=== PATIENT | female | born 1965 | race Caucasian/White ===

== ENCOUNTER 2016-09-11 19:17 | Emergency (ER) | payer OTHER ==
[2016-09-11] MEDS ORDERED: DEXAMETHASONE 10 MG/ML VIAL IM STA (20:13)
[2016-09-11] MEDS ORDERED: AMOX/CLAV 875 MG/125 MG TABLET PO STA (20:13)
--- NOTE | 2016-09-11 20:16 | ED Physician Documentation ---
PD HPI HEENT - Stated complaint Stated Complaint: SINUS INF - Chief complaint Chief Complaint: General - History obtained from History obtained from: Patient - History of Present Illness Timing - onset: How many days ago (4) Timing - duration: Days (4) Timing - details: Gradual onset, Still present Location: Left ear, Sinuses Improves: Medication Associated symptoms: Congestion, Rhinorrhea, Facial swelling, Headache Similar symptoms before: Diagnosis (sinusitis) Recently seen: Not recently seen - Additional information Additional information: 51-year-old female with history of gastric bypass has developed typical sinus infection symptoms. She has had sinus infection a number of times previously. She started this course with a headache on the left side and progression to sinus congestion and facial swelling pain in the left ear. Review of Systems Constitutional: reports: Fatigue. denies: Fever Eyes: denies: Decreased vision Ears: reports: Ear pain Nose: reports: Rhinorrhea / runny nose, Congestion, Sinus pressure / pain Throat: denies: Dental pain / toothache, Sore throat Cardiac: denies: Chest pain / pressure Respiratory: reports: Cough (Typical smoker's cough). denies: Dyspnea GI: denies: Abdominal Pain, Nausea, Vomiting : denies: Dysuria Skin: denies: Rash Musculoskeletal: denies: Neck pain Neurologic: reports: Headache. 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 : None HEENT: Chronic sinusitis Psych: None Musculoskeletal: Osteoarthritis Derm: None - Past Surgical History Past Surgical History: Yes General: Cholecystectomy, Bowel surgery, Gastric surgery, Colonoscopy /BUILDING CONSTRUCTION SUPERINTENDENT: Endometrial ablation, Dilation and currettage, Hysterectomy, Oophrectomy , LEEP (Cervical surgery) HEENT: Tonsil/Adenoidectomy - Present Medications Home Medications: Ambulatory Orders Medication Instructions Recorded Confirmed Amox/Clav 875/125 [Augmentin] 1 each PO Q12H #20 tablet 09/11/16 - Allergies Allergies/Adverse Reactions: Allergies Allergy/AdvReac Type Severity Reaction Status Date / Time No Known Drug Allergies Allergy Verified 09/11/16 19:46 - Social History Does the pt smoke?: Yes Smoking Status: Current every day smoker Does the pt drink ETOH?: Yes ETOH Use: Beer Does the pt have substance abuse?: No Substance Use and Type: Marijuana - Immunizations Immunizations are current?: Yes - POLST Patient has POLST: No PD ED PE NORMAL - Vitals Vital signs reviewed: Yes (Normal) - General General: No acute distress, Well developed/nourished, Other (Obvious nasal quality to the voice.) - HEENT HEENT: Atraumatic, PERRL, EOMI, Moist mucous membranes, Pharynx benign, Dentition benign, Other (The left TM is inflamed in the addict the right TM is also inflamed. There is sinus point tenderness to the left maxillary sinus and not to the right similar to the left frontal sinus and not to the right. ) - Neck Neck: Supple, no meningeal sign, No bony TTP - Cardiac Cardiac: RRR, No murmur - Respiratory Respiratory: No respiratory distress, Clear bilaterally - Derm Derm: Normal color, Warm and dry, No rash - Extremities Extremities: Normal ROM s pain, No edema - Neuro Neuro: No motor deficit, No sensory deficit - Psych Psych: Normal mood, Normal affect Results - Vitals Vitals: Vital Signs - 24 hr 09/11/16 09/11/16 09/11/16 19:29 19:43 19:47 Temperature 36.5 C 36.0 C L 36.3 C L Heart Rate 84 76 77 Respiratory 18 17 16 Rate Blood Pressure 126/72 103/71 114/83 H O2 Saturation 100 100 100 Oxygen O2 Source Room air PD MEDICAL DECISION MAKING - ED course Complexity details: considered differential, d/w patient ED course: 51-year-old female with history of gastric bypass with acute maxillary sinusitis and otitis is given a dose of dexamethasone IM because she has had issue with her esophagus previously. She is also given a dose of Augmentin here in the emergency department as the pharmacies are about to close. Departure - Departure Disposition: 01 Home, Self Care Clinical Impression: Acute maxillary sinusitis Qualifiers: Recurrence: not specified as recurrent Qualified Code(s): J01.00 - Acute maxillary sinusitis, unspecified Otitis media Qualifiers: Otitis media type: suppurative Laterality: bilateral Chronicity: acute Recurrence: not specified as recurrent Spontaneous tympanic membrane rupture: without spontaneous rupture Qualified Code(s): H66.003 - Acute suppurative otitis media without spontaneous rupture of ear drum, bilateral Condition: Stable Instructions: ED Otitis Media Acute Adult, ED Sinusitis Abx Tx Follow-Up: Jimenez Mendiola MD [Primary Care Provider] - Prescriptions: Amox/Clav 875/125 [Augmentin] 1 each PO Q12H #20 tablet
[2016-09-11] MEDS ORDERED: AMOX/CLAV 875 MG/125 MG TABLET PO ONE (20:17)
[2016-09-11] MEDS ORDERED: DEXAMETHASONE 10 MG/ML VIAL ONE (20:18)
[2016-09-11 20:48] VITALS: BP 109/78
== END 2016-09-11 20:49 | disposition home or self-care (01) ==
LOC: ED 19:17
DX: J01.00 Acute maxillary sinusitis, unspecified (principal); H66.003 Acute suppurative otitis media without spontaneous rupture of ear drum, bilateral; I10 Essential (primary) hypertension; E11.9 Type 2 diabetes mellitus without complications; F17.200 Nicotine dependence, unspecified, uncomplicated; Z98.84 Bariatric surgery status
CPT/HCPCS: 96372; 99283; A9270

== ENCOUNTER 2016-09-25 11:57 | Emergency (ER) | payer OTHER ==
[2016-09-25] MEDS ORDERED: PROPARACAINE 0.5% OPHTH DROPS 15 ML ONE (12:36)
--- NOTE | 2016-09-25 12:47 | ED Physician Documentation ---
PD HPI URI - Stated complaint Stated Complaint: VISION IMPAIRED - Chief complaint Chief Complaint: Heent - History obtained from History obtained from: Patient - History of Present Illness Timing - onset: Other (51-year-old woman with recurrent sinusitis, recently treated for same but stopped the antibiotic, Augmentin because of diarrhea. Today she coughed quite hard and had flashes and floaters in both eyes for 30 seconds which rapidly went away but then developed a very mild left retro- orbital headache of gradual onset there is no recurrent visual deficit. She is specifically worried about retinal detachment, I assured her that this was inconsistent with the history provided. She still has sinus symptoms. 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 : None HEENT: Chronic sinusitis Psych: None Musculoskeletal: Osteoarthritis Derm: None - Past Surgical History Past Surgical History: Yes General: Cholecystectomy, Bowel surgery, Gastric surgery, Colonoscopy /SPOOL SALVAGER: Endometrial ablation, Dilation and currettage, Hysterectomy, Oophrectomy , LEEP (Cervical surgery) HEENT: Tonsil/Adenoidectomy - Present Medications Home Medications: Ambulatory Orders Medication Instructions Recorded Confirmed Cefdinir 300 mg PO BID #28 capsule 09/25/16 Sitagliptin Phos/Metformin HCl 1 tab PO DAILY 09/25/16 09/25/16 [Janumet 50-1,000 mg Tablet] - Allergies Allergies/Adverse Reactions: Allergies Allergy/AdvReac Type Severity Reaction Status Date / Time No Known Drug Allergies Allergy Verified 09/11/16 19:46 - Social History Does the pt smoke?: Yes Smoking Status: Current every day smoker Does the pt drink ETOH?: Yes Does the pt have substance abuse?: No - Immunizations Immunizations are current?: Yes - POLST Patient has POLST: No PD ED PE NORMAL - Vitals Vital signs reviewed: Yes - General General: Alert and oriented X 3, No acute distress - HEENT HEENT: PERRL, EOMI, Other (Nondilated funduscopic exam is normal, Kota-Pen is 15 on the right, 16 on the left, there is mild left maxillary sinus tenderness.) - Neck Neck: Supple, no meningeal sign, No bony TTP - Neuro Neuro: Alert and oriented X 3, melter supervisor oxygen furnace 2-12 intact, No motor deficit, No sensory deficit, Normal speech - Psych Psych: Normal mood, Normal affect Results - Vitals Vitals: Vital Signs - 24 hr 09/25/16 12:02 Temperature 36.5 C Heart Rate 82 Respiratory 18 Rate Blood Pressure 106/72 O2 Saturation 100 Oxygen O2 Source Room air Departure - Departure Disposition: 01 Home, Self Care Clinical Impression: Acute maxillary sinusitis Qualifiers: Recurrence: recurrent Qualified Code(s): J01.01 - Acute recurrent maxillary sinusitis Condition: Good Record reviewed to determine appropriate education?: Yes Instructions: ED Sinusitis No Abx Prescriptions: Cefdinir 300 mg PO BID #28 capsule Comments: fOLLOWUP WITH YOUR EYE DOCTOR VAZQUEZ IF SYMPTOMS DO NOT QUICKLY RESOLVE.
[2016-09-25 12:52] VITALS: BP 106/76
== END 2016-09-25 12:54 | disposition home or self-care (01) ==
LOC: ED 11:57
DX: J01.00 Acute maxillary sinusitis, unspecified (principal); I10 Essential (primary) hypertension; E11.9 Type 2 diabetes mellitus without complications; Z79.84 Long term (current) use of oral hypoglycemic drugs; F17.200 Nicotine dependence, unspecified, uncomplicated
CPT/HCPCS: 99283; J3490

== ENCOUNTER 2017-05-10 13:04 | Outpatient (CLI) | payer OTHER | END 2017-05-10 13:05 | disposition critical access hospital (66) | LOC: EMS 13:04 | PROVIDERS: ATTEND Surgery | DX: M54.5 Low back pain (principal) | CPT/HCPCS: A0425; A0429 ==

== ENCOUNTER 2017-05-10 13:22 | Emergency (ER) | payer OTHER ==
[2017-05-10] MEDS ORDERED: diazePAM INJ 5 MG/ML SYRINGE IVP STA (13:28)
[2017-05-10] MEDS ORDERED: HYDROmorphone 1 MG/ML SYRINGE IVP STA ×3 (13:28→15:16)
[2017-05-10] MEDS ORDERED: KETOROLAC 60 MG/2 ML VIAL IVP STA (13:28)
--- NOTE | 2017-05-10 13:30 | ED Physician Documentation ---
PD HPI BACK PAIN - Stated complaint Stated Complaint: BACK PX - History obtained from History obtained from: Patient, EMS - History of Present Illness Timing - onset: Other (She has had on and off low back pain which is at times severe and she smokes marijuana for it. This is only on a very occasional basis. Over the last few days the pain has been much more severe and it doubled her over today. It is in the low back and radiates to both hips and around to the front on both sides with some mild numbness in the left leg. There is no incontinence or saddle anesthesia. 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 : None HEENT: Chronic sinusitis Psych: None Musculoskeletal: Osteoarthritis Derm: None - Past Surgical History Past Surgical History: Yes General: Cholecystectomy, Bowel surgery, Gastric surgery, Colonoscopy /MANAGER AVIATION: Endometrial ablation, Dilation and currettage, Hysterectomy, Oophrectomy , LEEP (Cervical surgery) HEENT: Tonsil/Adenoidectomy - Present Medications Home Medications: Ambulatory Orders Medication Instructions Recorded Confirmed Cefdinir 300 mg PO BID #28 capsule 09/25/16 Sitagliptin Phos/Metformin HCl 1 tab PO DAILY 09/25/16 09/25/16 [Janumet 50-1,000 mg Tablet] Cyclobenzaprine [Flexeril] 10 mg PO TID PRN #20 tablet 05/10/17 Ibuprofen [Motrin] 800 mg PO Q8H PRN #30 tablet 05/10/17 Oxycodone HCl/Acetaminophen 1 - 2 tab PO Q4H PRN #15 tablet 05/10/17 [Percocet 5-325 mg Tablet] - Allergies Allergies/Adverse Reactions: Allergies Allergy/AdvReac Type Severity Reaction Status Date / Time No Known Drug Allergies Allergy Verified 05/10/17 13:44 - Social History Does the pt smoke?: Yes Smoking Status: Current every day smoker Does the pt drink ETOH?: Yes Does the pt have substance abuse?: No - Immunizations Immunizations are current?: Yes - POLST Patient has POLST: No PD ED PE NORMAL - Vitals Vital signs reviewed: Yes - General General: Alert and oriented X 3, Other (She is in obvious pain and winces with motion.) - Cardiac Cardiac: RRR, No murmur - Respiratory Respiratory: No respiratory distress, Clear bilaterally - Abdomen Abdomen: Non tender - Back Back: Other (She is tender to the low paralumbar musculature bilaterally. She has mildly diminished sensation over the anterior left thigh, otherwise The patient has equal and normal Achilles and patellar reflexes bilaterally. Normal sensation in all areas of the legs. Patient denies saddle anesthesia. Normal strength in flexion-extension at the ankles, knees, and flexion of the hips.) - Neuro Neuro: Alert and oriented X 3, Normal speech - Psych Psych: Normal mood, Normal affect Results - Vitals Vitals: Vital Signs - 24 hr 05/10/17 05/10/17 05/10/17 13:27 14:43 16:18 Temperature 35.8 C L Heart Rate 77 92 93 Respiratory 32 H 18 18 Rate Blood Pressure 137/97 H 108/76 117/74 O2 Saturation 100 96 100 Oxygen O2 Source Room air - Labs Labs: Laboratory Tests 05/10/17 05/10/17 13:38 13:38 WBC 7.9 RBC 4.51 Hgb 13.1 Hct 38.1 MCV 84.5 MCH 28.9 MCHC 34.3 RDW 14.9 Plt Count 230 MPV 8.5 Neut # 4.3 Lymph # 2.5 [place] # 0.7 Eos # 0.2 Baso # 0.1 Absolute Nucleated RBC 0.00 Nucleated RBC % 0.0 Sodium 135 Potassium 3.8 Chloride 100 L Carbon Dioxide 23 Anion Gap 12.0 BUN 9 Creatinine 0.7 Estimated GFR (MDRD) 89 Glucose 142 H Calcium 8.7 - Rads (name of study) MRI Lspine Radiology: See rad report (Multilevel Neuroforaminal narrowing and minimal grade 1 anterolisthesis of L5 on S1.) PD MEDICAL DECISION MAKING - ED course ED course: 47-year-old woman presents with severe low back pain, it was basically intractable during the first hours of her stay here. Because of that an MRI was done, especially knowing that she has Underlying type 2 diabetes which of course is a major risk factor for spinal epidural abscess, MRI results as shown. Departure - Departure Disposition: 01 Home, Self Care Clinical Impression: Sciatica Qualifiers: Laterality: left Qualified Code(s): M54.32 - Sciatica, left side Back pain Qualifiers: Back pain location: low back pain Chronicity: acute Back pain laterality: bilateral Sciatica presence: with sciatica Sciatica laterality: sciatica of left side Qualified Code(s): M54.42 - Lumbago with sciatica, left side Diabetes Qualifiers: Diabetes mellitus type: type 2 Diabetes mellitus complication status: without complication Diabetes mellitus correction insulin use: without moth exterminator use Qualified Code(s): E11.9 - Type 2 diabetes mellitus without complications Condition: Good Record reviewed to determine appropriate education?: Yes Instructions: ED Sciatica Prescriptions: Cyclobenzaprine [Flexeril] 10 mg PO TID PRN #20 tablet PRN Reason: Pain Ibuprofen [Motrin] 800 mg PO Q8H PRN #30 tablet PRN Reason: PAIN &/OR FEVER Oxycodone HCl/Acetaminophen [Percocet 5-325 mg Tablet] 1 - 2 tab PO Q4H PRN #15 tablet PRN Reason: Pain Comments: Call your doctor to arrange a follow-up appointment, make the next available appointment. In the interim, return anytime if worse or if new symptoms develop. Do not drink or drive while taking narcotic pain medication. Note that many narcotic pain relievers also contain Tylenol/acetaminophen. Please ensure that your total dose of acetaminophen from all sources does not exceed 3 g (3000 mg) per day. You may get constipated while on this medication. Take a stool softener such as Colace twice a day while you are on it. Also add an [id number]-[id number] laxative such as senna or MiraLAX on any day that you do not have a bowel movement. If you received a narcotic pain medication or sedative while in the emergency department, do not drive for the next 24 hours.
[2017-05-10 13:43] LABS: BASOPHILS # (AUTO) 0.1 10^3/uL (0.0-0.1); BASOPHILS % (AUTO) 0.9 %; EOSINOPHILS # (AUTO) 0.2 10^3/uL (0.0-0.7); EOSINOPHILS % (AUTO) 2.9 %; HGB - HEMOGLOBIN 13.1 g/dL (12.0-16.0); LYMPHOCYTES # (AUTO) 2.5 10^3/uL (1.5-3.5); LYMPHOCYTES % (AUTO) 32.2 %; MEAN CORPUSCULAR HEMOGLOBIN 28.9 pg (27.0-31.0); MEAN CORPUSCULAR HGB CONC 34.3 g/dL (32.0-36.0); MEAN CORPUSCULAR VOLUME 84.5 fL (81.0-99.0); MEAN PLATELET VOLUME 8.5 fL (7.9-10.8); MONOCYTES # (AUTO) 0.7 10^3/uL (0.0-1.0); MONOCYTES % (AUTO) 8.9 %; NEUTROPHILS # (AUTO) 4.3 10^3/uL (1.5-6.6); NEUTROPHILS % (AUTO) 55.1 %; PLT - PLATELET COUNT 230 10^3/uL (130-450); RED BLOOD COUNT 4.51 10^6/uL (4.20-5.40); RED CELL DISTRIBUTION WIDTH 14.9 % (12.0-15.0); WHITE BLOOD COUNT 7.9 x10^3/uL (4.8-10.8)
[2017-05-10] MEDS ORDERED: LORazepam 2 MG/ML VIAL IVP STA (13:48)
[2017-05-10 13:51] LABS: CALCIUM 8.7 mg/dL (8.5-10.3); CREATININE 0.7 mg/dL (0.4-1.0)
[2017-05-10] MEDS ORDERED: DEXAMETHASONE 10 MG/ML VIAL IVP STA (14:14)
[2017-05-10] MEDS ORDERED: ONDANSETRON 4 MG/2 ML VIAL IVP STA (16:38)
--- NOTE | 2017-05-10 16:47 | MRI Report ---
EXAM: MRI LUMBAR SPINE WITHOUT CONTRAST EXAM DATE: 05/10/2017 04:05 PM. CLINICAL HISTORY: 51-year-old with intractable low back pain and pain radiating into the left lower e xtremity COMPARISON: None. TECHNIQUE: Multiplanar, multisequence T1-weighted and fluid-sensitive sequences of the lumbar spine f rom T12 to S1 without contrast. Other: None. FINDINGS: Spinal Cord: The conus terminates at L1-L2. The conus medullaris and cauda equina are unremarkable. Alignment: There is a 3 mm grade 1 anterolisthesis of L5 on S1. No definite scoliotic curvature. Bone Marrow: Five [id number] lumbar vertebral bodies are assumed. No gross fractures or bone les ions. No bone marrow edema. Disk Levels/Facets: Mild loss of disk height and disk desiccation seen from L3-L4 to L5-S1, greatest at L4-L5. T12-L1: Unremarkable. L1-L2: Unremarkable. L2-L3: Small posterior disk bulge, ligamentum flavum thickening, facet disease, and prominent dorsal epidural fat. Mild spinal canal stenosis. Minimal right neural foraminal narrowing. L3-L4: Small posterior disk bulge, ligamentum flavum thickening, facet disease, and prominent dorsal epidural fat. No definite spinal canal stenosis. Mild bilateral neural foraminal narrowing. L4-L5: Small posterior disk bulge, ligamentum flavum thickening, arthritic facet disease, and promine nt dorsal epidural fat. No spinal canal stenosis. Mild to moderate bilateral neural foraminal narrowi ng. L5-S1: Small central to right paracentral disk protrusion. Bilateral facet disease. Effacement of the right lateral recess with contact of the right S1 nerve root. Mild bilateral neural foraminal narrow ing. Musculature: Visualized paraspinal musculature appears normal. There is edema seen within the subcuta neous fat. Other: The partially visualized retroperitoneum is unremarkable. IMPRESSION: 1. There is minimal grade 1 anterolisthesis of L5 on S1. 2. There is mild multilevel degenerative changes. L2-L3: Mild spinal canal stenosis. Minimal right neural foraminal narrowing. L3-L4: No definite spinal canal stenosis. Mild bilateral neural foraminal narrowing. L4-L5: No spinal canal stenosis. Mild to moderate bilateral neural foraminal narrowing. L5-S1: Effacement of the right lateral recess with potential contact of the right S1 nerve root. Mild bilateral neural foraminal narrowing. Comment: The following findings are so common in adults without low back pain that while we report th eir presence, they must be interpreted with caution and in the context of the clinical situation. (Re aníbal Gutierrez et al, Spine 2001) Prevalence of findings in patients without low back pain: Disk degeneration (any evidence): 92% Disk desiccation/T2 signal loss: 83% Disk height loss: 56% Disk bulge: 64% Disk protrusion: 32% Annular tear/high intensity zone: 38% [facility] Referring Provider Line: [phone] SITE ID: [id number]
[2017-05-10 17:22] VITALS: BP 109/67
== END 2017-05-10 17:20 | disposition home or self-care (01) ==
LOC: EDUNIT# → ED 13:22
DX: M54.42 Lumbago with sciatica, left side (principal); I10 Essential (primary) hypertension; E11.9 Type 2 diabetes mellitus without complications; F17.200 Nicotine dependence, unspecified, uncomplicated
CPT/HCPCS: 36415; 72148; 80048; 85025; 96374; 96375; 96376; 99284; J1170; J2060

== ENCOUNTER 2017-05-14 11:13 | Emergency (ER) | payer OTHER ==
[2017-05-14] MEDS ORDERED: KETOROLAC 60 MG/2 ML VIAL IM STA (12:41)
[2017-05-14] MEDS ORDERED: HYDROmorphone 1 MG/ML CARPUJECT IM STA (12:41)
--- NOTE | 2017-05-14 12:43 | ED Physician Documentation ---
PD HPI BACK INJURY - Stated complaint Stated Complaint: BACK PX - History obtained from History obtained from: Patient - History of Present Illness Location: Other (She developed severe low back pain 5 days ago and was seen here 4 days ago when medicated. She did improve, she is out of the oxycodone. An MRI was done on that date showing multilevel disease. She had neural foraminal narrowing that was mild to moderate at multiple levels. Pain has settled into the left hip and she is numb over the lateral left hip, but not completely. There is no saddle anesthesia or fever.) Review of Systems Constitutional: denies: Fever, Chills GI: reports: Vomiting (from the pain). 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 : None HEENT: Chronic sinusitis Psych: None Musculoskeletal: Osteoarthritis Derm: None - Past Surgical History Past Surgical History: Yes General: Cholecystectomy, Bowel surgery, Gastric surgery, Colonoscopy /QUILLER MACHINE FIXER: Endometrial ablation, Dilation and currettage, Hysterectomy, Oophrectomy , LEEP (Cervical surgery) HEENT: Tonsil/Adenoidectomy - Present Medications Home Medications: Ambulatory Orders Medication Instructions Recorded Confirmed Cefdinir 300 mg PO BID #28 capsule 09/25/16 05/14/17 Sitagliptin Phos/Metformin HCl 1 tab PO DAILY 09/25/16 05/14/17 [Janumet 50-1,000 mg Tablet] Cyclobenzaprine [Flexeril] 10 mg PO TID PRN #20 tablet 05/10/17 05/14/17 Ibuprofen [Motrin] 800 mg PO Q8H PRN #30 tablet 05/10/17 05/14/17 Gabapentin 300 mg PO TID #90 capsule 05/14/17 Meloxicam [Mobic] 7.5 mg PO BIDWM PRN #15 tablet 05/14/17 Oxycodone HCl/Acetaminophen 1 - 2 tab PO Q4H PRN #15 tablet 05/14/17 [Percocet 5-325 mg Tablet] - Allergies Allergies/Adverse Reactions: Allergies Allergy/AdvReac Type Severity Reaction Status Date / Time No Known Drug Allergies Allergy Verified 05/14/17 11:49 - Social History Does the pt smoke?: Yes Smoking Status: Current every day smoker Does the pt drink ETOH?: Yes Does the pt have substance abuse?: No - Immunizations Immunizations are current?: Yes - POLST Patient has POLST: No PD ED PE NORMAL - Vitals Vital signs reviewed: Yes - General General: Alert and oriented X 3, Other (Comfortable at rest, winces with motion) - Abdomen Abdomen: Soft, Non tender - Back Back: No spinal TTP - Extremities Extremities: Other (She has diminished sensation especially in the left L4 distribution, she has mild pedal edema. I am unable to at least initially have her bend her legs to check patellar reflexes.) - Neuro Neuro: Alert and oriented X 3, Normal speech Results - Vitals Vitals: Vital Signs - 24 hr 05/14/17 05/14/17 11:16 13:18 Temperature 35.7 C L 36.1 C L Heart Rate 87 78 Respiratory 18 18 Rate Blood Pressure 128/80 129/85 H O2 Saturation 100 100 Oxygen O2 Source Room air PD MEDICAL DECISION MAKING - ED course ED course: She was administered IM Dilaudid and Toradol with modest relief, she requested discharge at that point without further medications here. Departure - Departure Disposition: Home, Self Care Clinical Impression: Sciatica Qualifiers: Laterality: left Qualified Code(s): M54.32 - Sciatica, left side Condition: Good Record reviewed to determine appropriate education?: Yes Instructions: ED Sciatica Prescriptions: Gabapentin 300 mg PO TID #90 capsule Meloxicam [Mobic] 7.5 mg PO BIDWM PRN #15 tablet PRN Reason: Pain Oxycodone HCl/Acetaminophen [Percocet 5-325 mg Tablet] 1 - 2 tab PO Q4H PRN #15 tablet PRN Reason: Pain Comments: Call your doctor to arrange a follow-up appointment, make the next available appointment. In the interim, return anytime if worse or if new symptoms develop. Do not drink or drive while taking narcotic pain medication. Note that many narcotic pain relievers also contain Tylenol/acetaminophen. Please ensure that your total dose of acetaminophen from all sources does not exceed 3 g (3000 mg) per day. You may get constipated while on this medication. Take a stool softener such as Colace twice a day while you are on it. Also add an ikpa-uak-zudukgx laxative such as senna or MiraLAX on any day that you do not have a bowel movement. If you received a narcotic pain medication or sedative while in the emergency department, do not drive for the next 24 hours. Your blood pressure was elevated today on check into the emergency department. This does not mean that you have hypertension, it is a common phenomenon to come to the emergency department and have elevated blood pressure. I recommend that you see your primary care physician within the week to have it rechecked when you are feeling better.
[2017-05-14 13:18] VITALS: BP 129/85
== END 2017-05-14 13:32 | disposition home or self-care (01) ==
LOC: ED 11:13
DX: M54.32 Sciatica, left side (principal); I10 Essential (primary) hypertension; E11.9 Type 2 diabetes mellitus without complications; Z79.84 Long term (current) use of oral hypoglycemic drugs; K21.9 Gastro-esophageal reflux disease without esophagitis; N80.9 Endometriosis, unspecified; M19.90 Unspecified osteoarthritis, unspecified site; Z98.84 Bariatric surgery status; F17.200 Nicotine dependence, unspecified, uncomplicated
CPT/HCPCS: 96372; 99283; J1170

== ENCOUNTER 2017-06-18 16:50 | Outpatient (CLI) | payer OTHER ==
--- NOTE | 2017-06-18 20:15 | Ultrasound Report ---
EXAM: BILATERAL LOWER EXTREMITY VENOUS ULTRASOUND EXAM DATE: 06/18/2017 05:16 PM. CLINICAL HISTORY: Bilateral ASYMPTOMATIC VARICOSE VEINS. COMPARISON: None. TECHNIQUE: Real-time sonographic vascular imaging was performed by the assistant sales manager through the lower extremities utilizing both color-flow and Doppler spectral analysis. Multiple automotive leasing sales representative static i mages were saved for review. FINDINGS: Right: Common Femoral Vein (CFV): Normal. CFV-GSV Junction: Normal. Profunda Femoral Vein (PFV): Normal. Femoral Vein (FV) Prox: Normal. Femoral Vein (FV) Mid: Normal. Femoral Vein (FV) Dist: Normal. Popliteal Vein: Normal. Posterior Tibial Veins: Normal. Peroneal Veins: Normal. Left: Common Femoral Vein (CFV): Normal. CFV-GSV Junction: Normal. Profunda Femoral Vein (PFV): Normal. Femoral Vein (FV) Prox: Normal. Femoral Vein (FV) Mid: Normal. Femoral Vein (FV) Dist: Normal. Popliteal Vein: Normal. Posterior Tibial Veins: Normal. Peroneal Veins: Normal. Other: None. IMPRESSION: No evidence for deep venous thrombosis bilaterally. [facility] Referring Provider Line: [phone] SITE ID: [id number]
== END 2017-06-18 16:51 | disposition home or self-care (01) ==
LOC: DI 16:50
PROVIDERS: ATTEND Family Medicine
DX: I83.90 Asymptomatic varicose veins of unspecified lower extremity (principal)
CPT/HCPCS: 93970

== ENCOUNTER 2017-09-01 19:47 | Emergency (ER) | payer OTHER ==
[2017-09-01 19:55] VITALS: BP 124/81
[2017-09-01] MEDS ORDERED: POLYMYXIN B/TRIMETH OPHTH DROPS EACHEYE STA (21:23)
--- NOTE | 2017-09-01 21:23 | ED Physician Documentation ---
PD HPI OPHTHO - Stated complaint Stated Complaint: RED EYES - Chief complaint Chief Complaint: Heent - History obtained from History obtained from: Patient - History of Present Illness Timing - onset: How many days ago (2) Timing - details: Gradual onset, Still present Location: Both Associated symptoms: Redness, Discharge Similar symptoms before: Treatment Recently seen: Not recently seen - Additional information Additional information: Patient is a 52 year old female with no significant past medical history who is presenting to the emergency department for bilateral eye pain. patient states that the redness has been going on for the last couple of days. Patient has been using drops but they a few years ago. When asked about possible things culprits patient states that her cat sleep on her head every day. 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: Endometriosis : None HEENT: Chronic sinusitis Psych: None Musculoskeletal: Osteoarthritis Derm: None - Past Surgical History Past Surgical History: Yes General: Cholecystectomy, Bowel surgery, Gastric surgery, Colonoscopy /CHRONIC MANAGER: Endometrial ablation, Dilation and currettage, Hysterectomy, Oophrectomy , LEEP (Cervical surgery) HEENT: Tonsil/Adenoidectomy - Present Medications Home Medications: Ambulatory Orders Medication Instructions Recorded Confirmed Cefdinir 300 mg PO BID #28 capsule 09/25/16 05/14/17 Sitagliptin Phos/Metformin HCl 1 tab PO DAILY 09/25/16 05/14/17 [Janumet 50-1,000 mg Tablet] Cyclobenzaprine [Flexeril] 10 mg PO TID PRN #20 tablet 05/10/17 05/14/17 Ibuprofen [Motrin] 800 mg PO Q8H PRN #30 tablet 05/10/17 05/14/17 Gabapentin 300 mg PO TID #90 capsule 05/14/17 Meloxicam [Mobic] 7.5 mg PO BIDWM PRN #15 tablet 05/14/17 Oxycodone HCl/Acetaminophen 1 - 2 tab PO Q4H PRN #15 tablet 05/14/17 [Percocet 5-325 mg Tablet] Polymyxin B Sulf/Trimethoprim 1 drop EACHEYE Q3H 7 Days drops 09/01/17 [Polytrim Eye Drops] - Allergies Allergies/Adverse Reactions: Allergies Allergy/AdvReac Type Severity Reaction Status Date / Time No Known Drug Allergies Allergy Verified 09/01/17 19:55 - Social History Does the pt smoke?: Yes Smoking Status: Current every day smoker Does the pt drink ETOH?: Yes Does the pt have substance abuse?: No - Immunizations Immunizations are current?: Yes - POLST Patient has POLST: No PD ED PE NORMAL - General General: Alert and oriented X 3, No acute distress - HEENT HEENT: Atraumatic - Neck Neck: Supple, no meningeal sign - Cardiac Cardiac: RRR - Respiratory Respiratory: No respiratory distress - Derm Derm: Normal color, No rash - Extremities Extremities: No deformity - Neuro Eye Opening: Spontaneous PD ED PE EXPANDED - Eyes Eyes: Both eyes, Injected conj/sclera Results - Vitals Vitals: Oxygen O2 Source Room air PD MEDICAL DECISION MAKING - ED course Complexity details: reviewed old records, re-evaluated patient, considered differential, d/w patient ED course: Patient was seen and examined at bedside. Patient was in no distress. patient was treated with polytrim drops. patient required no further work up and was stable for discharge with outpatient follow up. - Sepsis Event Vital Signs: Oxygen O2 Source Room air Departure - Departure Disposition: 01 Home, Self Care Clinical Impression: Conjunctivitis Condition: Good Instructions: Red Eye Tx Follow-Up: GABO WYLIE DO [Primary Care Provider] - Within 3 Days Prescriptions: Polymyxin B Sulf/Trimethoprim [Polytrim Eye Drops] 1 drop EACHEYE Q3H 7 Days drops Comments: You have been prescribed eye drops and will need to be on them for the next week. there might be an allergic component to the reaction and you should avoid excessive exposure to animal dander. you should follow up with your doctor if symptoms persist. you may return to the emergency department at any time for new, worsening or uncontrollable symptoms. Discharge Date/Time: 09/01/17 21:57
== END 2017-09-01 21:57 | disposition home or self-care (01) ==
LOC: ED 19:47
DX: H10.9 Unspecified conjunctivitis (principal); E11.9 Type 2 diabetes mellitus without complications; F17.200 Nicotine dependence, unspecified, uncomplicated
CPT/HCPCS: 99282; 99283; A9270

== ENCOUNTER 2017-09-21 09:33 | Outpatient (CLI) | payer OTHER ==
--- NOTE | 2017-09-21 15:08 | XRAY Report ---
Procedure Date: 09/21/2017 Accession Number: [id number] / [id number] Procedure: FL - Esophogram CPT Code: FULL RESULT: EXAM: Esophogram DATE: 09/21/2017 11:49 AM CLINICAL HISTORY: GASTRO-ESOPHAGEAL REFLUX DISEASE W/O ESOPHAGITIS COMPARISON: None. TECHNIQUE: Routine double contrast esophagram. Fluoroscopic exposure time: 2 minutes 25 seconds minutes. Number of fluoroscopic images: 37. FINDINGS: Swallowing Mechanism: Normal. No tracheal aspiration or penetration. Esophageal Motility: Normal peristaltic stripping wave. Mucosa: Normal. No ulcerations or masses. Gastroesophageal Junction: Patient is status post gastric bypass surgery. No hernia, stricture, or significant reflux. Other: None. IMPRESSION: No significant reflux, erosion or mass. [facility]
[2017-09-21] MEDS ORDERED: BARIUM SULFATE 148 GM POWDER PO ONE (15:18)
[2017-09-21] MEDS ORDERED: BARIUM SULFATE 135 ML BOTTLE PO ONE (15:18)
== END 2017-09-21 09:34 | disposition home or self-care (01) ==
LOC: DI 09:33
PROVIDERS: ATTEND Otolaryngology
DX: K21.9 Gastro-esophageal reflux disease without esophagitis (principal); R49.0 Dysphonia
CPT/HCPCS: 74220; A9270

== ENCOUNTER 2017-11-10 21:50 | Emergency (ER) | payer OTHER ==
[2017-11-10 22:22] LABS: BASOPHILS # (AUTO) 0.1 10^3/uL (0.0-0.1); BASOPHILS % (AUTO) 0.8 %; EOSINOPHILS # (AUTO) 0.3 10^3/uL (0.0-0.7); EOSINOPHILS % (AUTO) 3.4 %; HGB - HEMOGLOBIN 12.1 g/dL (12.0-16.0); LYMPHOCYTES # (AUTO) 2.7 10^3/uL (1.5-3.5); LYMPHOCYTES % (AUTO) 35.8 %; MEAN CORPUSCULAR HEMOGLOBIN 26.8 pg (27.0-31.0); MEAN CORPUSCULAR HGB CONC 33.4 g/dL (32.0-36.0); MEAN CORPUSCULAR VOLUME 80.5 fL (81.0-99.0); MEAN PLATELET VOLUME 8.5 fL (7.9-10.8); MONOCYTES # (AUTO) 0.6 10^3/uL (0.0-1.0); MONOCYTES % (AUTO) 8.6 %; NEUTROPHILS # (AUTO) 3.9 10^3/uL (1.5-6.6); NEUTROPHILS % (AUTO) 51.4 %; PLT - PLATELET COUNT 237 10^3/uL (130-450); RED CELL DISTRIBUTION WIDTH 16.7 % (12.0-15.0); WHITE BLOOD COUNT 7.5 x10^3/uL (4.8-10.8)
[2017-11-10 22:37] LABS: ALBUMIN 3.6 g/dL (3.2-5.5); ALBUMIN/GLOBULIN RATIO 1.4 (1.0-2.2); BILIRUBIN,TOTAL 0.3 mg/dL (0.2-1.0); CALCIUM 8.6 mg/dL (8.5-10.3); CREATININE 0.7 mg/dL (0.4-1.0); TOTAL PROTEIN 6.2 g/dL (6.7-8.2)
--- NOTE | 2017-11-10 22:56 | XRAY Report ---
Reason: diff breathing chest pain. Procedure Date: 11/10/2017 Accession Number: [id number] / [id number] Procedure: XR - Chest 2 View X-Ray CPT Code: 18118 FULL RESULT: EXAM: CHEST RADIOGRAPHY EXAM DATE: 11/10/2017 10:43 PM. CLINICAL HISTORY: Difficulty breathing, dyspnea, chest pain. COMPARISON: None. TECHNIQUE: 2 views. FINDINGS: Lungs/Pleura: No focal opacities evident. No pleural effusion. No pneumothorax. Normal volumes. Mediastinum: Heart and mediastinal contours are unremarkable. Other: There is moderate multilevel degenerative change within the spine. There are suture lines as well as staple material projecting over the left upper quadrant. Right upper quadrant clips indicate prior cholecystectomy. IMPRESSION: No acute cardiopulmonary abnormality demonstrated. [facility]
--- NOTE | 2017-11-10 23:28 | ED Physician Documentation ---
PD HPI CHEST PAIN - Stated complaint Stated Complaint: SOA - Chief complaint Chief Complaint: Resp - History obtained from History obtained from: Patient - History of Present Illness Timing - onset: How many days ago (10) Timing - details: Gradual onset, Waxing and waning Pain level now: 0 Improved by: Nothing Worsened by: Exertion Associated symptoms: Shortness of air Similar symptoms before: Has not had sx before Recently seen: Not recently seen - Additional information Additional information: c/o breathing shallow, having a hard time getting air in, chest heaviness. symptoms x 1.5weeks Review of Systems Constitutional: reports: Reviewed and negative Cardiac: reports: Chest pain / pressure (heaviness). denies: Palpitations, Pedal edema Respiratory: reports: Dyspnea. 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 : None HEENT: Chronic sinusitis Psych: None Musculoskeletal: Osteoarthritis Derm: None - Past Surgical History Past Surgical History: Yes General: Cholecystectomy, Bowel surgery, Gastric surgery, Colonoscopy /INFECTION PREVENTION SPECIALIST: Endometrial ablation, Dilation and currettage, Hysterectomy, Oophrect ani, LEEP (Cervical surgery) HEENT: Tonsil/Adenoidectomy - Present Medications Home Medications: Ambulatory Orders Medication Instructions Recorded Confirmed Cefdinir 300 mg PO BID #28 capsule 09/25/16 05/14/17 Sitagliptin Phos/Metformin HCl 1 tab PO DAILY 09/25/16 05/14/17 [Janumet 50-1,000 mg Tablet] Cyclobenzaprine [Flexeril] 10 mg PO TID PRN #20 tablet 05/10/17 05/14/17 Ibuprofen [Motrin] 800 mg PO Q8H PRN #30 tablet 05/10/17 05/14/17 Gabapentin 300 mg PO TID #90 capsule 05/14/17 Meloxicam [Mobic] 7.5 mg PO BIDWM PRN #15 tablet 05/14/17 Oxycodone HCl/Acetaminophen 1 - 2 tab PO Q4H PRN #15 tablet 05/14/17 [Percocet 5-325 mg Tablet] Polymyxin B Sulf/Trimethoprim 1 drop EACHEYE Q3H 7 Days drops 09/01/17 [Polytrim Eye Drops] Albuterol Sulf [Ventolin Hfa 1 - 2 puffs INH Q4HR PRN #1 inhaler 11/11/17 Inhaler] predniSONE [Prednisone] 40 mg PO DAILY #6 tablet 11/11/17 - Allergies Allergies/Adverse Reactions: Allergies Allergy/AdvReac Type Severity Reaction Status Date / Time No Known Drug Allergies Allergy Verified 11/10/17 22:03 - Social History Does the pt smoke?: Yes Smoking Status: Former smoker Does the pt drink ETOH?: Yes Does the pt have substance abuse?: No - Immunizations Immunizations are current?: Yes - POLST Patient has POLST: No PD ED PE NORMAL - Vitals Vital signs reviewed: Yes - General General: Alert and oriented X 3, No acute distress, Well developed/nourished - Cardiac Cardiac: RRR, No murmur - Respiratory Respiratory: No respiratory distress, Clear bilaterally - Abdomen Abdomen: Soft, Non tender - Derm Derm: Normal color, Warm and dry, No rash - Extremities Extremities: No edema Results - Vitals Vitals: Oxygen O2 Source Room air - EKG (time done) No standard instances Rate: Rate (enter#) (77) Rhythm: NSR [place]: Normal Intervals: Normal MS QRS: Normal Ischemia: Normal ST segments - Labs Labs: Laboratory Tests 11/10/17 11/10/17 11/10/17 22:10 22:10 22:10 WBC 7.5 RBC 4.50 Hgb 12.1 Hct 36.2 L MCV 80.5 L MCH 26.8 L MCHC 33.4 RDW 16.7 H Plt Count 237 MPV 8.5 Neut # (Auto) 3.9 Lymph # (Auto) 2.7 [place] # (Auto) 0.6 Eos # (Auto) 0.3 Baso # (Auto) 0.1 Absolute Nucleated RBC 0.00 Nucleated RBC % 0.0 D-Dimer Sodium 139 Potassium 4.1 Chloride 106 Carbon Dioxide 26 Anion Gap 7.0 BUN 14 Creatinine 0.7 Estimated GFR (MDRD) 89 Glucose 143 H POC Whole Bld Glucose Calcium 8.6 Total Bilirubin 0.3 AST 19 ALT 22 Alkaline Phosphatase 76 Troponin I < 0.04 Total Protein 6.2 L Albumin 3.6 Globulin 2.6 Albumin/Globulin Ratio 1.4 Lipase 27 11/10/17 11/11/17 22:10 02:01 WBC RBC Hgb Hct MCV MCH MCHC RDW Plt Count MPV Neut # (Auto) Lymph # (Auto) [place] # (Auto) Eos # (Auto) Baso # (Auto) Absolute Nucleated RBC Nucleated RBC % D-Dimer < 200.0 L Sodium Potassium Chloride Carbon Dioxide Anion Gap BUN Creatinine Estimated GFR (MDRD) Glucose POC Whole Bld Glucose 173 H Calcium Total Bilirubin AST ALT Alkaline Phosphatase Troponin I Total Protein Albumin Globulin Albumin/Globulin Ratio Lipase - Rads (name of study) chest xray Radiology: Prelim report reviewed, See rad report PD MEDICAL DECISION MAKING - ED course Complexity details: reviewed results, re-evaluated patient, considered differential, d/w patient - Sepsis Event Vital Signs: Oxygen O2 Source Room air Departure - Departure Disposition: Home, Self Care Clinical Impression: Chest pain Qualifiers: Chest pain type: chest pain on breathing Qualified Code(s): R07.1 - Chest pain on breathing Dyspnea Qualifiers: Dyspnea type: unspecified Qualified Code(s): R06.00 - Dyspnea, unspecified Condition: Good Instructions: ED Chest Pain Atypical Unkn Cause, ED Dyspnea Shortness of Breath Follow-Up: GABO WYLIE DO [Primary Care Provider] - Prescriptions: Albuterol Sulf [Ventolin Hfa Inhaler] 1 - 2 puffs INH Q4HR PRN #1 inhaler PRN Reason: Shortness Of Air/Wheezing predniSONE [Prednisone] 40 mg PO DAILY #6 tablet Discharge Date/Time: 11/11/17 03:21
[2017-11-10] MEDS ORDERED: ALBUTEROL NEB 2.5 MG/3 ML INH STA (23:50)
[2017-11-10] MEDS ORDERED: DEXAMETHASONE 10 MG/ML VIAL IVP STA (23:50)
[2017-11-11 01:53] VITALS: BP 115/77
== END 2017-11-11 03:21 | disposition home or self-care (01) ==
LOC: ED 21:50
DX: R07.1 Chest pain on breathing (principal); E11.9 Type 2 diabetes mellitus without complications; Z87.891 Personal history of nicotine dependence
CPT/HCPCS: 36415; 71046; 80053; 83690; 84484; 85025; 85379; 93005; 94640; 96374; 99283; 99284

== ENCOUNTER 2017-12-13 11:58 | Outpatient (CLI) | payer OTHER ==
--- NOTE | 2017-12-13 18:07 | MRI Report ---
Reason: PAIN IN RIGHT KNEE Procedure Date: 12/13/2017 Accession Number: [id number] / [id number] Procedure: MRI - Knee RT W/O CPT Code: FULL RESULT: EXAM: RIGHT KNEE MRI WITHOUT CONTRAST EXAM DATE: 12/13/2017 12:57 PM. CLINICAL HISTORY: Pain in right knee. COMPARISON: None. TECHNIQUE: Multiplanar, multisequence T1-weighted and fluid-sensitive sequences of the knee without contrast. Other: None. FINDINGS: Bones: No fractures or subluxations. No marrow edema. No bone lesions. Articular Cartilage: There is a small amount of grade 2-3 chondromalacia at the patellar apex. Broad overall global cartilaginous thinning at the medial compartment on both sides of the joint. Lateral compartment is relatively spared. Medial Meniscus: The medial meniscus is intact. Lateral Meniscus: The lateral meniscus is intact. Cruciate Ligaments: The anterior and posterior cruciate ligaments are intact. Collateral Ligaments: The medial collateral and lateral collateral ligamentous structures are intact. Tendons: The quadriceps, patellar, semimembranosus, and popliteus tendons are unremarkable. Musculature: No edema or fatty atrophy. Other: No effusion. No popliteal cyst. No loose bodies. Small ganglion cysts are seen at the attachment of the proximal aspect medial head of the gastrocnemius onto the posteromedial femoral metaphysis. There also are small ganglion cyst seen at the posterior margin of the PCL. PCL is intact. The medial and lateral retinacula are intact. Some subcutaneous soft tissue swelling and edema is seen anteriorly. IMPRESSION: 1. Some grade 2-3 chondromalacia is seen at the patellar apex. Broad overall global cartilaginous thinning at the medial compartment of both sides of the joint. Lateral compartment is relatively spared. 2. Menisci, cruciates and collaterals appear unremarkable. 3. Small ganglion cyst at the attachment of the proximal aspect of the medial head of the gastrocnemius onto the posteromedial femoral metaphysis. Also noted is a small ganglion cyst at the posterior margin of the PCL. [facility] MUSCULOSKELETAL RADIOLOGY SECTION
== END 2017-12-13 11:59 | disposition home or self-care (01) ==
LOC: DI 11:58
PROVIDERS: ATTEND Orthopaedic Surgery
DX: M22.41 Chondromalacia patellae, right knee (principal); M67.461 Ganglion, right knee

== ENCOUNTER 2018-02-22 14:15 | Emergency (ER) | payer OTHER ==
[2018-02-22 14:50] LABS: BASOPHILS # (AUTO) 0.1 10^3/uL (0.0-0.1); BASOPHILS % (AUTO) 1.2 %; EOSINOPHILS # (AUTO) 0.2 10^3/uL (0.0-0.7); EOSINOPHILS % (AUTO) 1.8 %; LYMPHOCYTES % (AUTO) 24.6 %; MEAN CORPUSCULAR HEMOGLOBIN 26.8 pg (27.0-31.0); MEAN CORPUSCULAR HGB CONC 33.4 g/dL (32.0-36.0); MEAN CORPUSCULAR VOLUME 80.4 fL (81.0-99.0); MEAN PLATELET VOLUME 8.8 fL (7.9-10.8); MONOCYTES # (AUTO) 0.6 10^3/uL (0.0-1.0); MONOCYTES % (AUTO) 7.7 %; NEUTROPHILS # (AUTO) 5.3 10^3/uL (1.5-6.6); NEUTROPHILS % (AUTO) 64.7 %; PLT - PLATELET COUNT 256 10^3/uL (130-450); RED BLOOD COUNT 5.21 10^6/uL (4.20-5.40); RED CELL DISTRIBUTION WIDTH 14.9 % (12.0-15.0); WHITE BLOOD COUNT 8.2 x10^3/uL (4.8-10.8)
[2018-02-22 15:07] LABS: ALBUMIN 4.3 g/dL (3.2-5.5); ALBUMIN/GLOBULIN RATIO 1.5 (1.0-2.2); BILIRUBIN,TOTAL 0.4 mg/dL (0.2-1.0); CALCIUM 9.1 mg/dL (8.5-10.3); TOTAL PROTEIN 7.1 g/dL (6.7-8.2)
[2018-02-22 15:16] LABS: BILIRUBIN,URINE NEGATIVE (NEGATIVE); GLUCOSE, URINE (UA) >=1000 mg/dL (NEGATIVE); KETONES,URINE (UA) 15 mg/dL (NEGATIVE); LEUKOCYTE ESTERASE, URINE NEGATIVE (NEGATIVE); NITRITE,URINE NEGATIVE (NEGATIVE); OCCULT BLOOD,URINE NEGATIVE (NEGATIVE); PH,URINE 5.5 PH (5.0-7.5); PROTEIN,URINE NEGATIVE (NEGATIVE); UROBILINOGEN,URINE 0.2 (NORMAL) E.U./dL (NORMAL)
[2018-02-22 15:17] LABS: CLARITY,URINE CLEAR (CLEAR)
[2018-02-22] MEDS ORDERED: SODIUM CHLORIDE 0.9% 1,000 ML IV ONE (15:41)
[2018-02-22] MEDS ORDERED: INSULIN REGULAR HUMAN 100 UNIT/1 ML 10 ML MDV IVP STA (15:41)
--- NOTE | 2018-02-22 15:53 | ED Physician Documentation ---
History of Present Illness - Stated complaint Stated Complaint: HIGH BS - Chief complaint Chief Complaint: General - History obtained from History obtained from: Patient, Family - History of Present Illness Timing: How many weeks ago (5) - Additonal information Additional information: 52-year-old female with a history of type 2 diabetes has recently gone off of her injectable medication and she is on metformin only and her blood sugars have crept up and are now over 300. She has been unable to get them to come down at all. She is drinking a lot of fluid she is urinating a lot and she feels weak and tired. She states that she has had some issue with an autoinjector for her medication not being prescribed. Review of Systems Constitutional: denies: Fever Eyes: denies: Decreased vision Ears: denies: Ear pain Nose: denies: Congestion Throat: denies: Sore throat Cardiac: denies: Chest pain / pressure, Palpitations Respiratory: denies: Dyspnea, Cough GI: denies: Abdominal Pain, Nausea, Vomiting, Constipation, Diarrhea : reports: Frequency. 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 : None HEENT: Chronic sinusitis Psych: None Musculoskeletal: Osteoarthritis Derm: None - Past Surgical History Past Surgical History: Yes General: Cholecystectomy, Bowel surgery, Gastric surgery, Colonoscopy /OPERATIONS LEADER: Endometrial ablation, Dilation and currettage, Hysterectomy, Oophrectomy, LEEP (Cervical surgery) HEENT: Tonsil/Adenoidectomy - Present Medications Home Medications: Ambulatory Orders Medication Instructions Recorded Confirmed Cefdinir 300 mg PO BID #28 capsule 09/25/16 05/14/17 Sitagliptin Phos/Metformin HCl 1 tab PO DAILY 09/25/16 05/14/17 [Janumet 50-1,000 mg Tablet] Cyclobenzaprine [Flexeril] 10 mg PO TID PRN #20 tablet 05/10/17 05/14/17 Ibuprofen [Motrin] 800 mg PO Q8H PRN #30 tablet 05/10/17 05/14/17 Gabapentin 300 mg PO TID #90 capsule 05/14/17 Meloxicam [Mobic] 7.5 mg PO BIDWM PRN #15 tablet 05/14/17 Oxycodone HCl/Acetaminophen 1 - 2 tab PO Q4H PRN #15 tablet 05/14/17 [Percocet 5-325 mg Tablet] Polymyxin B Sulf/Trimethoprim 1 drop EACHEYE Q3H 7 Days drops 09/01/17 [Polytrim Eye Drops] Albuterol Sulf [Ventolin Hfa 1 - 2 puffs INH Q4HR PRN #1 inhaler 11/11/17 Inhaler] predniSONE [Prednisone] 40 mg PO DAILY #6 tablet 11/11/17 - Allergies Allergies/Adverse Reactions: Allergies Allergy/AdvReac Type Severity Reaction Status Date / Time No Known Drug Allergies Allergy Verified 02/22/18 14:25 - Social History Does the pt smoke?: No Smoking Status: Former smoker Does the pt drink ETOH?: Yes ETOH Use: Liquor Does the pt have substance abuse?: No - Immunizations Immunizations are current?: Yes - POLST Patient has POLST: No PD ED PE NORMAL - Vitals Vital signs reviewed: Yes (hypertensive) - General General: Alert and oriented X 3, No acute distress, Well developed/nourished - HEENT HEENT: Atraumatic, PERRL, EOMI - Neck Neck: Supple, no meningeal sign, No bony TTP - Cardiac Cardiac: RRR, No murmur - Respiratory Respiratory: No respiratory distress, Clear bilaterally - Abdomen Abdomen: Soft, Non tender - Back Back: No CVA TTP, No spinal TTP - Derm Derm: Normal color, Warm and dry, No rash - Extremities Extremities: No deformity, No edema - Neuro Neuro: Alert and oriented X 3, journal entry audit clerk 2-12 intact, No motor deficit, No sensory deficit, Normal speech Eye Opening: Spontaneous Motor: Obeys Commands Verbal: Oriented GCS Score: 15 - Psych Psych: Normal mood, Normal affect Results - Vitals Vitals: Vital Signs - 24 hr 02/22/18 14:18 Temperature 36 C L Heart Rate 76 Respiratory 18 Rate Blood Pressure 133/89 H O2 Saturation 97 Oxygen O2 Source Room air - Labs Labs: Laboratory Tests 02/22/18 02/22/18 02/22/18 14:23 14:47 14:47 WBC 8.2 RBC 5.21 Hgb 14.0 Hct 41.9 MCV 80.4 L MCH 26.8 L MCHC 33.4 RDW 14.9 Plt Count 256 MPV 8.8 Neut # (Auto) 5.3 Lymph # (Auto) 2.0 [place] # (Auto) 0.6 Eos # (Auto) 0.2 Baso # (Auto) 0.1 Absolute Nucleated RBC 0.00 Nucleated RBC % 0.1 Sodium 136 Potassium 4.2 Chloride 102 Carbon Dioxide 20 L Anion Gap 14.0 H BUN 14 Creatinine 1.0 Estimated GFR (MDRD) 59 L Glucose 276 H POC Whole Bld Glucose 294 H Calcium 9.1 Total Bilirubin 0.4 AST 30 ALT 27 Alkaline Phosphatase 86 Total Protein 7.1 Albumin 4.3 Globulin 2.8 Albumin/Globulin Ratio 1.5 Lipase 25 Urine Color Urine Clarity Urine pH Ur Specific [place] Urine Protein Urine Glucose (UA) Urine Ketones Urine Occult Blood Urine Nitrite Urine Bilirubin Urine Urobilinogen Ur Leukocyte Esterase Ur Microscopic Review Urine Culture Comments 02/22/18 02/22/18 15:04 16:43 WBC RBC Hgb Hct MCV MCH MCHC RDW Plt Count MPV Neut # (Auto) Lymph # (Auto) [place] # (Auto) Eos # (Auto) Baso # (Auto) Absolute Nucleated RBC Nucleated RBC % Sodium Potassium Chloride Carbon Dioxide Anion Gap BUN Creatinine Estimated GFR (MDRD) Glucose POC Whole Bld Glucose 98 Calcium Total Bilirubin AST ALT Alkaline Phosphatase Total Protein Albumin Globulin Albumin/Globulin Ratio Lipase Urine Color YELLOW Urine Clarity CLEAR Urine pH 5.5 Ur Specific [place] 1.025 Urine Protein NEGATIVE Urine Glucose (UA) >=1000 H Urine Ketones 15 H Urine Occult Blood NEGATIVE Urine Nitrite NEGATIVE Urine Bilirubin NEGATIVE Urine Urobilinogen 0.2 (NORMAL) Ur Leukocyte Esterase NEGATIVE Ur Microscopic Review NOT INDICATED Urine Culture Comments NOT INDICATED Procedures - IVC sono (time) 1520 Bedside IVC sono: IVC measures (cm) (0.82), IVC collapsed c insp (cm) (complete), Dehydration (est 2 liter deficit) PD MEDICAL DECISION MAKING - ED course Complexity details: reviewed results, re-evaluated patient, considered differential, d/w patient, d/w family ED course: 52 y/o female with type 2 diabetes has developed dehydration and hyperglycemia despite taking her doses of metformin. An IV is begun and she is given IV insulin 10 units and one liter of saline. The patient has a remarkably rapid improvement in her blood sugar down to 98 after this 1 maneuver. She will be able to hydrate further at home and she will follow-up with her doctor about restarting her Bydureon. Departure - Departure Disposition: Home, Self Care Clinical Impression: Dehydration Hyperglycemia due to type 2 diabetes mellitus Qualifiers: Diabetes mellitus long term care administrator insulin use: without residential use Qualified Code(s): E11.65 - Type 2 diabetes mellitus with hyperglycemia Condition: Stable Instructions: ED Dehydration, ED Hyperglycemia Diabetic Follow-Up: GABO WYLIE DO [Primary Care Provider] -
[2018-02-22 16:59] VITALS: BP 109/86
== END 2018-02-22 17:05 | disposition home or self-care (01) ==
LOC: ED 14:15
DX: E86.0 Dehydration (principal); E11.65 Type 2 diabetes mellitus with hyperglycemia; Z79.84 Long term (current) use of oral hypoglycemic drugs; I10 Essential (primary) hypertension; Z87.891 Personal history of nicotine dependence
CPT/HCPCS: 36415; 80053; 81003; 83690; 85025; 96360; 99283; 99284; J1815; 81001; 87086

== ENCOUNTER 2018-05-22 21:06 | Emergency (ER) | payer OTHER ==
[2018-05-22] MEDS ORDERED: INSULIN REGULAR HUMAN 100 UNIT/1 ML 10 ML MDV SUBQ STA (22:02)
--- NOTE | 2018-05-22 22:03 | ED Physician Documentation ---
History of Present Illness - Stated complaint Stated Complaint: NEED INSULIN/DIABETIC - Chief complaint Chief Complaint: General - History obtained from History obtained from: Patient - History of Present Illness Timing: Prior to arrival - Additonal information Additional information: Patient is a 52-year-old female with history of brittle diabetes presenting with concern for elevated blood glucose levels. Patient reports that she has had extensive troubles regulating blood glucose levels and has tried multiple medications and is currently using metformin and Trulicity.Patient believes that these medications are not working properly as she has continued elevated blood glucose levels. Patient states that she has been taking medications compliantly and eating well, as well as trying to exercise. Patient felt slightly lightheaded and with headache earlier tonight and took her blood glucose, which was over 300. Patient then took a metformin and came to the ED. Patient otherwise denies other preceding symptoms or current symptoms of new vision changes, nausea, vomiting, abdominal pain, urinary changes, stool changes, or fever. No other improving or worsening factors to her symptoms noted. 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 : None HEENT: Chronic sinusitis Psych: None Musculoskeletal: Osteoarthritis Derm: None - Past Surgical History Past Surgical History: Yes General: Cholecystectomy, Bowel surgery, Gastric surgery, Colonoscopy /CHEMICAL PROCESSING SUPERVISOR: Endometrial ablation, Dilation and currettage, Hysterectomy, Oophrectomy, LEEP (Cervical surgery) HEENT: Tonsil/Adenoidectomy - Present Medications Home Medications: Ambulatory Orders Medication Instructions Recorded Confirmed RX: Cefdinir 300 mg PO BID #28 capsule 09/25/16 05/14/17 Sitagliptin Phos/Metformin HCl 1 tab PO DAILY 09/25/16 05/14/17 [Janumet 50-1,000 mg Tablet] Cyclobenzaprine [Flexeril] 10 mg PO TID PRN #20 tablet 05/10/17 05/14/17 Ibuprofen [Motrin] 800 mg PO Q8H PRN #30 tablet 05/10/17 05/14/17 Oxycodone HCl/Acetaminophen 1 - 2 tab PO Q4H PRN #15 tablet 05/14/17 [Percocet 5-325 mg Tablet] RX: Gabapentin 300 mg PO TID #90 capsule 05/14/17 RX: Meloxicam [Mobic] 7.5 mg PO BIDWM PRN #15 tablet 05/14/17 Polymyxin B Sulf/Trimethoprim 1 drop EACHEYE Q3H 7 Days drops 09/01/17 [Polytrim Eye Drops] RX: Albuterol Sulf [Ventolin Hfa 1 - 2 puffs INH Q4HR PRN #1 inhaler 11/11/17 Inhaler] predniSONE [Prednisone] 40 mg PO DAILY #6 tablet 11/11/17 - Allergies Allergies/Adverse Reactions: Allergies Allergy/AdvReac Type Severity Reaction Status Date / Time No Known Drug Allergies Allergy Verified 05/22/18 21:21 - Social History Does the pt smoke?: No Smoking Status: Never smoker Does the pt drink ETOH?: Yes Does the pt have substance abuse?: No - Immunizations Immunizations are current?: Yes - POLST Patient has POLST: No PD ED PE NORMAL - General General: Alert and oriented X 3, No acute distress, Well developed/nourished - HEENT HEENT: Atraumatic, Moist mucous membranes, Pharynx benign, Dentition benign - Cardiac Cardiac: RRR, No murmur - Respiratory Respiratory: No respiratory distress, Clear bilaterally - Abdomen Abdomen: Normal bowel sounds, Soft, Non tender, Non distended - Derm Derm: Normal color, Warm and dry, No rash - Extremities Extremities: No deformity, No tenderness to palpate - Neuro Neuro: Alert and oriented X 3, No motor deficit, No sensory deficit - Psych Psych: Normal mood, Normal affect Results - Vitals Vitals: Vital Signs - 24 hr 05/22/18 05/22/18 21:14 22:33 Temperature 36.8 C 36.0 C L Heart Rate 85 92 Respiratory 16 16 Rate Blood Pressure 137/75 H 133/87 H O2 Saturation 97 99 Oxygen O2 Source Room air - Labs Labs: Laboratory Tests 05/22/18 21:20 POC Whole Bld Glucose 276 H PD MEDICAL DECISION MAKING - ED course Complexity details: considered differential, d/w patient, d/w family ED course: Unfortunately, patient is a brittle diabetic and has chronic difficulties regulating her blood glucose levels. Patient had a mildly elevated level earlier tonight, which was largely contributory to her symptoms. Patient's symptoms have improved since arrival to ED as she took metformin prior to arrival and her blood glucose continue to decline upon measurement in ED. Of note, patient is taking her own blood glucose levels at bedside per her preference and feel that this is appropriate at this time. Do not find evidence of DKA, HHS, or other acute process at this time. No systemic signs of illness or infection present. Discussed use of insulin in ED, which she has required previously, and given declining, but still elevated levels, chose to give 5 units of regular insulin. Discussed repeat blood glucose checks following return home, as well as strict return precautions and need for close primary care follow-up. Patient also has an appointment scheduled with the diabetic specialist within the next week and a half. Patient comfortable with discharge plan. Departure - Departure Disposition: 01 Home, Self Care Clinical Impression: Blood glucose abnormal Condition: Good Instructions: ED Diabetes General Info Follow-Up: GABO WYLIE DO [Primary Care Provider] - Within 3 Days Comments: Please continue home medications as previously instructed. Please check your blood glucose when you return home tonight to ensure that your blood glucose level has not dropped precipitously and if it has dropped significantly, please take appropriate precautions and eat. If it has risen, feel that it is appropriate to take your home medications as you see fit. However, do feel that you likely will need insulin for continued difficulty in controlling your blood glucose levels. Recommend contacting primary care physician tomorrow, as well as diabetic specialist in hopes of moving up your appointment to the next several days. Do recommend being seen in the next 2-3 days and returning to ED sooner if experience persistently elevated or decreased blood glucose levels, other symptoms, or other concerns. Discharge Date/Time: 05/22/18 22:35
[2018-05-22 22:39] VITALS: BP 133/87
== END 2018-05-22 22:35 | disposition home or self-care (01) ==
LOC: ED 21:06
DX: E11.65 Type 2 diabetes mellitus with hyperglycemia (principal); Z79.84 Long term (current) use of oral hypoglycemic drugs; I10 Essential (primary) hypertension
CPT/HCPCS: 99282; 99283; J1815

== ENCOUNTER 2018-06-17 19:24 | Emergency (ER) | payer OTHER ==
[2018-06-17] MEDS ORDERED: SODIUM CHLORIDE 0.9% 1,000 ML IV ONE (20:01)
[2018-06-17] MEDS ORDERED: INSULIN REGULAR HUMAN 100 UNIT/1 ML 10 ML MDV IVP STA (20:02)
--- NOTE | 2018-06-17 20:03 | ED Physician Documentation ---
PD HPI ABD PAIN - Stated complaint Stated Complaint: HIGH BLOOD SUGAR - Chief complaint Chief Complaint: Abd Pain - History obtained from History obtained from: Patient - History of Present Illness Timing - onset: Today (52-year-old type II diabetic has been having trouble with blood sugar control and finding an appropriate regimen. She had been on metformin for a long time but that caused severe cramping and was switched to a variety of other medications now is on Lantus 20 units in the morning. 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 : None HEENT: Chronic sinusitis Psych: None Musculoskeletal: Osteoarthritis Derm: None - Past Surgical History Past Surgical History: Yes General: Cholecystectomy, Bowel surgery, Gastric surgery, Colonoscopy /FOOD DEHYDRATOR OPERATOR: Endometrial ablation, Dilation and currettage, Hysterectomy, Oophrec steven, LEEP (Cervical surgery) HEENT: Tonsil/Adenoidectomy - Present Medications Home Medications: Ambulatory Orders Medication Instructions Recorded Confirmed Sitagliptin Phos/Metformin HCl 1 tab PO DAILY 09/25/16 06/17/18 [Janumet 50-1,000 mg Tablet] Albuterol Sulf [Ventolin Hfa 1 - 2 puffs INH Q4HR PRN #1 inhaler 11/11/17 06/17/18 Inhaler] Estradiol/Norethindrone Acet 1 tab PO DAILY 06/17/18 06/17/18 [Lopreeza 1 mg-0.5 mg Tablet] Insulin Glargine [Lantus Solostar] 20 unit SQ DAILY 06/17/18 06/17/18 predniSONE [Prednisone] 40 mg PO DAILY PRN 06/17/18 06/17/18 - Allergies Allergies/Adverse Reactions: Allergies Allergy/AdvReac Type Severity Reaction Status Date / Time No Known Drug Allergies Allergy Verified 06/17/18 19:29 - Social History Does the pt smoke?: No Smoking Status: Never smoker Does the pt drink ETOH?: Yes Does the pt have substance abuse?: No - Immunizations Immunizations are current?: Yes - POLST Patient has POLST: No PD ED PE NORMAL - Vitals Vital signs reviewed: Yes - General General: Alert and oriented X 3, No acute distress - Neck Neck: Supple, no meningeal sign, No bony TTP - Cardiac Cardiac: RRR, No murmur - Respiratory Respiratory: No respiratory distress, Clear bilaterally - Abdomen Abdomen: Non tender - Neuro Neuro: Alert and oriented X 3, Normal speech - Psych Psych: Normal mood, Normal affect Results - Vitals Vitals: Vital Signs - 24 hr 06/17/18 19:27 Temperature 36.1 C L Heart Rate 83 Respiratory 18 Rate Blood Pressure 136/93 H O2 Saturation 100 Oxygen O2 Source Room air - Labs Labs: Laboratory Tests 06/17/18 06/17/18 06/17/18 19:33 20:13 20:13 WBC 6.6 RBC 4.78 Hgb 12.6 Hct 38.0 MCV 79.5 L MCH 26.5 L MCHC 33.3 RDW 15.6 H Plt Count 244 MPV 9.0 Neut # (Auto) 3.5 Lymph # (Auto) 2.5 Emmet # (Auto) 0.4 Eos # (Auto) 0.1 Baso # (Auto) 0.1 Absolute Nucleated RBC 0.00 Nucleated RBC % 0.0 VBG pH VBG pCO2 VBG pO2 VBG HCO3 VBG Total CO2 VBG O2 Saturation VBG Base Excess Sodium 139 Potassium 3.8 Chloride 104 Carbon Dioxide 24 Anion Gap 11.0 BUN 12 Creatinine 0.8 Estimated GFR (MDRD) 76 L Glucose 261 H POC Whole Bld Glucose 300 H Calcium 9.2 Serum Ketones NEGATIVE 06/17/18 20:13 WBC RBC Hgb Hct MCV MCH MCHC RDW Plt Count MPV Neut # (Auto) Lymph # (Auto) Emmet # (Auto) Eos # (Auto) Baso # (Auto) Absolute Nucleated RBC Nucleated RBC % VBG pH 7.420 H VBG pCO2 33.2 L VBG pO2 34.1 VBG HCO3 21.1 L VBG Total CO2 22.1 L VBG O2 Saturation 69.2 VBG Base Excess -2.6 L Sodium Potassium Chloride Carbon Dioxide Anion Gap BUN Creatinine Estimated GFR (MDRD) Glucose POC Whole Bld Glucose Calcium Serum Ketones PD MEDICAL DECISION MAKING - ED course ED course: 52-year-old woman with uncontrolled diabetes, no evidence of DKA. She was administered IV fluids and a small dose of insulin with improvement. She was advised to slowly increase her Lantus dose and follow-up with her doctor and an elevator supervisor. 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 Follow-up with your doctor and the elevator supervisor as scheduled.
[2018-06-17 20:21] LABS: VBG BASE EXCESS -2.6 mmol/L (-2 - +2); VBG PCO2 33.2 mmHg (41-51); VBG PH 7.42 (7.31-7.41); VBG PO2 34.1 mmHg (25-47); VBG TOTAL CO2 22.1 mmol/L (24-29)
[2018-06-17 20:23] LABS: BASOPHILS # (AUTO) 0.1 10^3/uL (0.0-0.1); BASOPHILS % (AUTO) 0.9 %; EOSINOPHILS # (AUTO) 0.1 10^3/uL (0.0-0.7); EOSINOPHILS % (AUTO) 2.1 %; HGB - HEMOGLOBIN 12.6 g/dL (12.0-16.0); LYMPHOCYTES # (AUTO) 2.5 10^3/uL (1.5-3.5); LYMPHOCYTES % (AUTO) 38.3 %; MEAN CORPUSCULAR HEMOGLOBIN 26.5 pg (27.0-31.0); MEAN CORPUSCULAR HGB CONC 33.3 g/dL (32.0-36.0); MEAN CORPUSCULAR VOLUME 79.5 fL (81.0-99.0); MONOCYTES # (AUTO) 0.4 10^3/uL (0.0-1.0); MONOCYTES % (AUTO) 6.4 %; NEUTROPHILS # (AUTO) 3.5 10^3/uL (1.5-6.6); NEUTROPHILS % (AUTO) 52.3 %; PLT - PLATELET COUNT 244 10^3/uL (130-450); RED BLOOD COUNT 4.78 10^6/uL (4.20-5.40); RED CELL DISTRIBUTION WIDTH 15.6 % (12.0-15.0); WHITE BLOOD COUNT 6.6 x10^3/uL (4.8-10.8)
[2018-06-17 20:27] LABS: BUN - BLOOD UREA NITROGEN 12 mg/dL (6-20); CALCIUM 9.2 mg/dL (8.5-10.3); CARBON DIOXIDE - CO2 24 mmol/L (21-32); CHLORIDE 104 mmol/L (101-111); CREATININE 0.8 mg/dL (0.4-1.0); GFR - MDRD 76 (>89); GLUCOSE 261 mg/dL (70-100); KETONES, SERUM (ACETEST) NEGATIVE (NEGATIVE); SODIUM 139 mmol/L (135-145)
[2018-06-17 21:34] VITALS: BP 153/98
== END 2018-06-17 21:34 | disposition home or self-care (01) ==
LOC: ED 19:24
DX: E11.65 Type 2 diabetes mellitus with hyperglycemia (principal); Z79.4 Long term (current) use of insulin; I10 Essential (primary) hypertension
CPT/HCPCS: 36415; 80048; 82009; 82803; 85025; 96360; 99283; J1815

== ENCOUNTER 2018-09-26 15:21 | Emergency (ER) | payer OTHER ==
[2018-09-26 16:03] VITALS: BP 127/85
[2018-09-26 16:05] LABS: BASOPHILS # (AUTO) 0.1 10^3/uL (0.0-0.1); BASOPHILS % (AUTO) 0.7 %; EOSINOPHILS # (AUTO) 0.1 10^3/uL (0.0-0.7); EOSINOPHILS % (AUTO) 1.9 %; LYMPHOCYTES # (AUTO) 2.1 10^3/uL (1.5-3.5); LYMPHOCYTES % (AUTO) 29.3 %; MEAN CORPUSCULAR HEMOGLOBIN 25.4 pg (27.0-31.0); MEAN CORPUSCULAR HGB CONC 31.6 g/dL (32.0-36.0); MEAN CORPUSCULAR VOLUME 80.5 fL (81.0-99.0); MEAN PLATELET VOLUME 11.4 fL (7.9-10.8); MONOCYTES # (AUTO) 0.5 10^3/uL (0.0-1.0); MONOCYTES % (AUTO) 7.3 %; NEUTROPHILS # (AUTO) 4.2 10^3/uL (1.5-6.6); NEUTROPHILS % (AUTO) 60.5 %; PLT - PLATELET COUNT 241 10^3/uL (130-450); RED BLOOD COUNT 4.72 10^6/uL (4.20-5.40); RED CELL DISTRIBUTION WIDTH 13.4 % (12.0-15.0)
--- NOTE | 2018-09-26 16:17 | XRAY Report ---
Reason: CP Procedure Date: 09/26/2018 Accession Number: [id number] / [id number] Procedure: XR - Chest 1 View X-Ray CPT Code: 39980 FULL RESULT: EXAM: CHEST RADIOGRAPHY EXAM DATE: 09/26/2018 04:05 PM. CLINICAL HISTORY: Left chest pain. COMPARISON: CHEST 2 VIEW 11/10/2017 10:30 PM. TECHNIQUE: Upright AP view. FINDINGS: Lungs/Pleura: No focal opacities evident. No interstitial abnormality or pulmonary vascular congestion. No pleural effusion. No pneumothorax. Mediastinum: Within exam limitations, the cardiomediastinal contour is normal. Other: None. IMPRESSION: Normal single view chest. RADIA
[2018-09-26 16:25] LABS: ALBUMIN 3.9 g/dL (3.2-5.5); ALBUMIN/GLOBULIN RATIO 1.3 (1.0-2.2); BILIRUBIN,TOTAL 0.2 mg/dL (0.2-1.0); CREATININE 0.9 mg/dL (0.4-1.0); TOTAL PROTEIN 6.8 g/dL (6.7-8.2)
--- NOTE | 2018-09-26 16:26 | ED Physician Documentation ---
PD HPI CHEST PAIN - Stated complaint Stated Complaint: L SIDE CP/L SHOULDER/ARM PX - Chief complaint Chief Complaint: Cardiac - History obtained from History obtained from: Patient, Family - History of Present Illness Timing - onset: How many hours ago (3) Timing - onset during: Rest Timing - duration: Hours (4) Timing - details: Gradual onset Pain level max: 10 Pain level now: 8 Quality: Pressure, Aching Location: Left chest Radiation: No: Jaw, Neck, Back, Abdominal, Left upper extremity, Right upper extremity Improved by: Nothing Worsened by: No: Exertion, Inspiration, Eating, Movement, Palpation, Position, Other Associated symptoms: No: Shortness of air, Diaphoresis, Nausea, Vomiting, Feeling faint / dizzy, General Weakness, Palpitations, Cough Similar symptoms before: Diagnosis ("trapped gas") Recently seen: Not recently seen - Additional information Additional information: 53-year-old female presents to the emergency department with left-sided chest pain. She states that it feels like past episodes of "trapped gas". She states that it moves around. No history of acute coronary syndrome. 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 : None HEENT: Chronic sinusitis Psych: None Musculoskeletal: Osteoarthritis Derm: None - Past Surgical History Past Surgical History: Yes General: Cholecystectomy, Bowel surgery, Gastric surgery, Colonoscopy /ENTOMOLOGY PROFESSOR: Endometrial ablation, Dilation and currettage, Hysterectomy, Oophrectomy, LEEP (Cervical surgery) HEENT: Tonsil/Adenoidectomy - Present Medications Home Medications: Ambulatory Orders Medication Instructions Recorded Confirmed Sitagliptin Phos/Metformin HCl 1 tab PO DAILY 09/25/16 06/17/18 [Janumet 50-1,000 mg Tablet] Albuterol Sulf [Ventolin Hfa 1 - 2 puffs INH Q4HR PRN #1 inhaler 11/11/17 06/17/18 Inhaler] Estradiol/Norethindrone Acet 1 tab PO DAILY 06/17/18 06/17/18 [Lopreeza 1 mg-0.5 mg Tablet] Insulin Glargine [Lantus Solostar] 20 unit SQ DAILY 06/17/18 06/17/18 predniSONE [Prednisone] 40 mg PO DAILY PRN 06/17/18 06/17/18 - Allergies Allergies/Adverse Reactions: Allergies Allergy/AdvReac Type Severity Reaction Status Date / Time No Known Drug Allergies Allergy Verified 09/26/18 15:33 - Social History Does the pt smoke?: No Smoking Status: Never smoker Does the pt drink ETOH?: Yes Does the pt have substance abuse?: No - Immunizations Immunizations are current?: Yes - POLST Patient has POLST: No PD ED PE NORMAL - Vitals Vital signs reviewed: Yes - General General: Alert and oriented X 3, No acute distress, Well developed/nourished - HEENT HEENT: Moist mucous membranes - Neck Neck: Supple, no meningeal sign - Cardiac Cardiac: RRR, No murmur, Strong equal pulses - Respiratory Respiratory: No respiratory distress, Clear bilaterally - Abdomen Abdomen: Soft, Non tender, Non distended - Back Back: No CVA TTP, No spinal TTP - Derm Derm: Warm and dry - Extremities Extremities: No edema, No calf tenderness / cord - Neuro Neuro: Alert and oriented X 3 - Psych Psych: Normal mood, Normal affect Results - Vitals Vitals: Oxygen O2 Source Room air - EKG (time done) 1532 Rate: Rate (enter#) Rhythm: NSR Marion: Normal Intervals: Normal TN QRS: Normal Ischemia: Normal ST segments - Labs Labs: Laboratory Tests 09/26/18 09/26/18 09/26/18 15:54 15:54 15:54 WBC 7.0 RBC 4.72 Hgb 12.0 Hct 38.0 MCV 80.5 L MCH 25.4 L MCHC 31.6 L RDW 13.4 Plt Count 241 MPV 11.4 H Neut # (Auto) 4.2 Lymph # (Auto) 2.1 Early # (Auto) 0.5 Eos # (Auto) 0.1 Baso # (Auto) 0.1 Absolute Nucleated RBC 0.00 Nucleated RBC % 0.0 D-Dimer Sodium 141 Potassium 3.8 Chloride 108 Carbon Dioxide 22 Anion Gap 11.0 BUN 16 Creatinine 0.9 Estimated GFR (MDRD) 66 L Glucose 200 H Calcium 9.0 Total Bilirubin 0.2 AST 16 ALT 15 Alkaline Phosphatase 76 Troponin I < 0.04 Troponin I High Sens Total Protein 6.8 Albumin 3.9 Globulin 2.9 Albumin/Globulin Ratio 1.3 Lipase 19 L 09/26/18 09/26/18 15:54 15:54 WBC RBC Hgb Hct MCV MCH MCHC RDW Plt Count MPV Neut # (Auto) Lymph # (Auto) Early # (Auto) Eos # (Auto) Baso # (Auto) Absolute Nucleated RBC Nucleated RBC % D-Dimer 228.9 Sodium Potassium Chloride Carbon Dioxide Anion Gap BUN Creatinine Estimated GFR (MDRD) Glucose Calcium Total Bilirubin AST ALT Alkaline Phosphatase Troponin I Troponin I High Sens < 2.3 L Total Protein Albumin Globulin Albumin/Globulin Ratio Lipase - Rads (name of study) cxr Radiology: Prelim report reviewed, EMP read contemporaneously, See rad report (normal) PD MEDICAL DECISION MAKING - ED course Complexity details: reviewed results, re-evaluated patient, considered differential (No ST elevation WI, no aortic dissection, no PE, no tension pneumothorax, no aortic aneurysm), d/w patient, d/w family ED course: Negative high-sensitivity troponin. Negative d-dimer. No evidence of acute coronary syndrome. Patient is well-appearing, nontoxic. She requested something to help her with the cast. She refuses Mylicon and states she will take Noreen- [place] once she gets home. Recommend that she follow-up with her doctor closely for a cardiac stress test. Patient counseled regarding signs and symptoms for which I believe and urgent re-evaluation would be necessary. Patient with good understanding of and agreement to plan and is comfortable going home at this time This document was made in part using voice recognition software. While efforts are made to proofread this document, sound alike and grammatical errors may occur. Departure - Departure Disposition: 01 Home, Self Care Clinical Impression: Chest pain Qualifiers: Chest pain type: unspecified Qualified Code(s): R07.9 - Chest pain, unspecified Condition: Good Instructions: ED Chest Pain Atypical Unkn Cause Follow-Up: GABO WYLIE DO [Primary Care Provider] - Within 3 Days Comments: The cause of your symptoms is unclear today. Follow-up with your doctor for further evaluation and care. Return if you worsen. Your testing is normal. Discharge Date/Time: 09/26/18 17:31
[2018-09-26] MEDS ORDERED: KETOROLAC 30 MG/ML VIAL IVP STA (17:15)
[2018-09-26] MEDS ORDERED: SIMETHICONE CHEW 80 MG TABLET PO STA (17:20)
== END 2018-09-26 17:31 | disposition home or self-care (01) ==
LOC: ED 15:21
DX: R07.9 Chest pain, unspecified (principal); I10 Essential (primary) hypertension; E11.9 Type 2 diabetes mellitus without complications; Z79.4 Long term (current) use of insulin
CPT/HCPCS: 36415; 71045; 80053; 83690; 84484; 85025; 85379; 93005; 99284; A9270

== ENCOUNTER 2018-10-11 16:05 | Emergency (ER) | payer OTHER ==
--- NOTE | 2018-10-11 17:53 | ED Physician Documentation ---
History of Present Illness - Stated complaint Stated Complaint: L ARM LUMP - Chief complaint Chief Complaint: Ext Problem - Additonal information Additional information: This is a 53-year-old female who presents with some pain in her left bic ep/antecubital fossa. She states he has had a little cystic feeling structure there for around 1 year, but it is beginning to become larger and more painful over the past several days. She mostly notices pain when she touches it directly. She has not noticed any redness or rash over the area. She denies trauma or injection to the area. 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 : None HEENT: Chronic sinusitis Psych: None Musculoskeletal: Osteoarthritis Derm: None - Past Surgical History Past Surgical History: Yes General: Cholecystectomy, Bowel surgery, Gastric surgery, Colonoscopy /WATCH REPAIRER: Endometrial ablation, Dilation and currettage, Hysterectomy, Oophrectomy, LEEP (Cervical surgery) HEENT: Tonsil/Adenoidectomy - Present Medications Home Medications: Ambulatory Orders Medication Instructions Recorded Confirmed Sitagliptin Phos/Metformin HCl 1 tab PO DAILY 09/25/16 06/17/18 [Janumet 50-1,000 mg Tablet] Albuterol Sulf [Ventolin Hfa 1 - 2 puffs INH Q4HR PRN #1 inhaler 11/11/17 06/17/18 Inhaler] Estradiol/Norethindrone Acet 1 tab PO DAILY 06/17/18 06/17/18 [Lopreeza 1 mg-0.5 mg Tablet] Insulin Glargine [Lantus Solostar] 20 unit SQ DAILY 06/17/18 06/17/18 predniSONE [Prednisone] 40 mg PO DAILY PRN 06/17/18 06/17/18 - Allergies Allergies/Adverse Reactions: Allergies Allergy/AdvReac Type Severity Reaction Status Date / Time No Known Drug Allergies Allergy Verified 10/11/18 16:15 - Social History Does the pt smoke?: No Smoking Status: Never smoker Does the pt drink ETOH?: Yes Does the pt have substance abuse?: No - Immunizations Immunizations are current?: Yes - POLST Patient has POLST: No PD ED PE NORMAL - Vitals Vital signs reviewed: Yes - General General: Alert and oriented X 3, No acute distress - HEENT HEENT: Atraumatic - Cardiac Cardiac: Strong equal pulses - Respiratory Respiratory: No respiratory distress - Abdomen Abdomen: Non distended - Extremities Extremities: Other (In the left ulnar aspect of the antecubital fossa just superior to the fossa there is a 1 cm x 2 cm mobile, cystic feeling structure. There is no overlying erythema or skin change. There is mildly tender to palpation. There are no surrounding lymph nodes palpated. Distal radial and ulnar pulses are 2+. Hand squeeze and finger abduction 5 out of 5 strength, sensation is intact light touch over the entire extremity. Patient is able to flex and extend her elbow normally) - Neuro Neuro: Alert and oriented X 3 - Psych Psych: Normal mood, Normal affect Results - Vitals Vitals: Vital Signs - 24 hr 10/11/18 16:13 Temperature 36.7 C Heart Rate 79 Respiratory 19 Rate Blood Pressure 133/72 H O2 Saturation 99 Oxygen O2 Source Room air - Rads (name of study) US Radiology: Prelim report reviewed (No abnormality seen) PD MEDICAL DECISION MAKING - ED course Complexity details: considered differential (Cyst, mass, muscle strain, abscess, tendon rupture) ED course: On exam patient is very well-appearing. There is an area of swelling on her left bicep/antecubital fossa region, which is not particularly tender on my exam, though the patient states the area is painful. Her limb is neurovascularly intact. Bedside ultrasound did not reveal any abnormalities, so I sent patient for a radiology ultrasound, which was also unremarkable without any cyst/fluid collection or abnormality seen. The area is very localized and inconsistent with DVT. I discussed the patient I am not sure what the cause of her discomfort is, but we will treat with NSAIDS and cool compresses and follow- up with her primary care provider. I discussed return precautions including signs of infection or other concerning symptoms. Patient agreed and was discharged home Departure - Departure Disposition: 01 Home, Self Care Clinical Impression: Pain in extremity Qualifiers: Extremity pain location: upper extremity Laterality: left Qualified Code(s): M79.602 - Pain in left arm Condition: Good Follow-Up: GABO WYLIE DO [Primary Care Provider] - Within 1 week Comments: You were seen today for a painful lump on your arm. We do not see signs of an abnormality on ultrasound, this does not appear to be an infection at this time. Please follow-up with your primary care provider, return to the emergency department if you have signs of infection, or numbness or weakness in the arm.
--- NOTE | 2018-10-11 19:14 | Ultrasound Report ---
Reason: Left distal bicep swelling and pain Procedure Date: 10/11/2018 Accession Number: [id number] / [id number] Procedure: US - Ext Limited Non Vascular CPT Code: FULL RESULT: EXAM: RIGHT/LEFT UPPER EXTREMITY ULTRASOUND - LIMITED EXAM DATE: 10/11/2018 06:25 PM. CLINICAL HISTORY: Left distal bicep swelling and pain. COMPARISON: None. TECHNIQUE: Real-time scanning was performed with static images obtained. FINDINGS: Limited ultrasound imaging performed at the area of concern in anterior distal medial arm/biceps region. No abnormal mass or fluid collection noted. IMPRESSION: No abnormality detected. RADIA
[2018-10-11 19:40] VITALS: BP 138/71
== END 2018-10-11 19:39 | disposition home or self-care (01) ==
LOC: ED 16:05
DX: M79.602 Pain in left arm (principal); I10 Essential (primary) hypertension; E11.9 Type 2 diabetes mellitus without complications; Z79.4 Long term (current) use of insulin
CPT/HCPCS: 76882; 99282; 99284

== ENCOUNTER 2018-12-01 23:44 | Emergency (ER) | payer OTHER ==
--- NOTE | 2018-12-02 00:11 | ED Physician Documentation ---
PD HPI DYSPNEA - Stated complaint Stated Complaint: SOA - History obtained from History obtained from: Patient - History of Present Illness Timing - onset: Today Timing - onset during: Rest Timing - details: Abrupt onset Pain level now: >10 Associated symptoms: No: Fever, Cough, Hemoptysis, Chest pain / discomfort, Palpitations Recently seen: Clinic - Additional information Additional information: Is a 53-year-old woman who presents with her complaints that she had the abrupt onset of pain under her breasts across the upper abdomen bilaterally that she thought was gas about an hour prior to presentation. It so severe though that she can even take a deep breath. This came on after they had eaten eggs and toast and then she just got a new prescription for morphine 15 mg For her back pain and took a half a tablet of that because she was having pain in her lo wer back. She said she laid on the couch for about an hour it did absolutely nothing to help alleviate the pain so she took the other half. She denies nausea or vomiting or diarrhea. She denies any dysuria. She has had a gastric bypass 7 years ago, she is status post hysterectomy and status post cholecystectomy 6 or 7 years ago. She is a type II diabetic. Denies history of heart disease. Is had no dysuria and denies history of kidney stones. Review of Systems Unable to obtain: Other (Acute pain clutching at her stomach, writhing on the bed and gasping for air.) Constitutional: denies: Fever Cardiac: denies: Chest pain / pressure, Palpitations Respiratory: reports: Dyspnea. denies: Cough GI: reports: Abdominal Pain. 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 : None HEENT: Chronic sinusitis Psych: None Musculoskeletal: Osteoarthritis Derm: None - Past Surgical History Past Surgical History: Yes General: Cholecystectomy, Bowel surgery, Gastric surgery, Colonoscopy /SURVEY FIELD TECHNICIAN: Endometrial ablation, Dilation and currettage, Hysterectomy, Oophrectomy, LEEP (Cervical surgery) HEENT: Tonsil/Adenoidectomy - Present Medications Home Medications: Ambulatory Orders Medication Instructions Recorded Confirmed Sitagliptin Phos/Metformin HCl 1 tab PO DAILY 09/25/16 06/17/18 [Janumet 50-1,000 mg Tablet] Albuterol Sulf [Ventolin Hfa 1 - 2 puffs INH Q4HR PRN #1 inhaler 11/11/17 06/17/18 Inhaler] Estradiol/Norethindrone Acet 1 tab PO DAILY 06/17/18 06/17/18 [Lopreeza 1 mg-0.5 mg Tablet] Insulin Glargine [Lantus Solostar] 20 unit SQ DAILY 06/17/18 06/17/18 predniSONE [Prednisone] 40 mg PO DAILY PRN 06/17/18 06/17/18 - Allergies Allergies/Adverse Reactions: Allergies Allergy/AdvReac Type Severity Reaction Status Date / Time No Known Drug Allergies Allergy Verified 10/11/18 16:15 - Social History Does the pt smoke?: No Smoking Status: Never smoker Does the pt drink ETOH?: Yes Does the pt have substance abuse?: No - Immunizations Immunizations are current?: Yes - POLST Patient has POLST: No PD ED PE NORMAL - Vitals Vital signs reviewed: Yes - General General: Alert and oriented X 3, Well developed/nourished, Other (Patient is clutching at her stomach with her fist she is rocking back and forth writhing on the bed and gasping for air.) - HEENT HEENT: PERRL, Other (Dry mucous membranes) - Cardiac Cardiac: RRR, No murmur - Respiratory Respiratory: No respiratory distress, Clear bilaterally - Abdomen Abdomen: Other (Hypoactive bowel tones. Obese abdomen. Well-healed scar in the right upper quadrant from a cholecystectomy and in the midline from her prior surgery. Tenderness in the upper quadrants and epigastric area bilaterally.) - Derm Derm: Normal color, Warm and dry, No rash - Neuro Neuro: Alert and oriented X 3, Other (No obvious gross neurological deficits.) Results - Vitals Vitals: Vital Signs - 24 hr 12/01/18 12/01/18 12/02/18 23:50 23:59 00:24 Temperature 37.0 C Heart Rate 93 94 79 Respiratory 22 17 22 Rate Blood Pressure 154/91 H 144/87 H O2 Saturation 98 98 100 12/02/18 12/02/18 12/02/18 01:06 02:06 03:03 Temperature Heart Rate 66 66 75 Respiratory 18 17 17 Rate Blood Pressure 125/67 128/66 142/73 H O2 Saturation 94 97 97 Oxygen O2 Source Room air - EKG (time done) 0135 Rate: Rate (enter#) (81) Rhythm: NSR Ischemia: ST depression (V3-V6) Other comments: Other comments (Artifact limiting interpretation) Compare to prior EKG: Old EKG unavailable 0032 Rate: Rate (enter#) (76) Rhythm: NSR Ischemia: ST elevation c/w repol (aVR), ST depression (I, II, V3-V6), Q waves (III) - Labs Labs: Laboratory Tests 12/02/18 12/02/18 12/02/18 00:12 00:12 00:12 WBC 11.8 H RBC 5.14 Hgb 12.2 Hct 39.9 MCV 77.6 L MCH 23.7 L MCHC 30.6 L RDW 14.5 Plt Count 293 MPV 11.5 H Neut # (Auto) 5.5 Lymph # (Auto) 4.8 H [facility] # (Auto) 1.1 H Eos # (Auto) 0.3 Baso # (Auto) 0.1 Absolute Nucleated RBC 0.00 Nucleated RBC % 0.0 Sodium 139 Potassium 3.3 L Chloride 104 Carbon Dioxide 23 Anion Gap 12.0 BUN 12 Creatinine 0.8 Estimated GFR (MDRD) 76 L Glucose 128 H Calcium 8.9 Total Bilirubin 0.4 AST 58 H ALT 34 Alkaline Phosphatase 79 Troponin I High Sens 2.7 Total Protein 7.0 Albumin 3.9 Globulin 3.1 Albumin/Globulin Ratio 1.3 Lipase 22 Urine Color Urine Clarity Urine pH Ur Specific [place] Urine Protein Urine Glucose (UA) Urine Ketones Urine Occult Blood Urine Nitrite Urine Bilirubin Urine Urobilinogen Ur Leukocyte Esterase Ur Microscopic Review Urine Culture Comments 12/02/18 12/02/18 01:30 03:10 WBC RBC Hgb Hct MCV MCH MCHC RDW Plt Count MPV Neut # (Auto) Lymph # (Auto) [facility] # (Auto) Eos # (Auto) Baso # (Auto) Absolute Nucleated RBC Nucleated RBC % Sodium Potassium Chloride Carbon Dioxide Anion Gap BUN Creatinine Estimated GFR (MDRD) Glucose Calcium Total Bilirubin AST ALT Alkaline Phosphatase Troponin I High Sens < 2.3 L Total Protein Albumin Globulin Albumin/Globulin Ratio Lipase Urine Color YELLOW Urine Clarity CLEAR Urine pH 5.5 Ur Specific [place] 1.020 Urine Protein NEGATIVE Urine Glucose (UA) NEGATIVE Urine Ketones NEGATIVE Urine Occult Blood NEGATIVE Urine Nitrite NEGATIVE Urine Bilirubin NEGATIVE Urine Urobilinogen 0.2 (NORMAL) Ur Leukocyte Esterase NEGATIVE Ur Microscopic Review NOT INDICATED Urine Culture Comments NOT INDICATED - Rads (name of study) acute abd Radiology: EMP read contemporaneously (No free air; scattered air-fluid levels) ct abd/pelvis Radiology: See rad report (Neg acute process; L adrenal mass) PD MEDICAL DECISION MAKING - ED course Complexity details: reviewed results, re-evaluated patient, d/w patient, d/w family ED course: Initially the patient continued to complain of pain. She had a milligram of Ativan and 10 of Reglan IV. After she returned from the x-ray department she said as long as she laid still things were not hurting her as bad by the time she was back from CT she said she was essentially pain-free she still had a little bit of back pain. She tolerated some ice chips. Her white blood cell count was only minimally elevated. Her liver enzymes and kidney function are normal. Urinalysis was negative. CT did not show any obvious obstruction or acute pathology. 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 When I mention this to the patient she said that they had told her in the past that she did have a "cyst" on her left kidney. Is unclear if this is the adenoma or not. Palpation of her abdomen reveals it to be only minimally tender in the epigastric area. I am going to repeat a troponin but my working diagnosis at this time is that this may have been a incarcerated hernia that has subsequently released. She mentioned that she had this pain several times over the past 2 to 3 years and she has had a multitude of surgeries. She has never felt a firm mass when this is happening but I have encouraged her to feel along her scar lines when she is having this discomfort to see if she has a palpable mass. Departure - Departure Disposition: 01 Home, Self Care Clinical Impression: Abdominal pain Qualifiers: Abdominal location: upper abdomen, unspecified Qualified Code(s): R10.10 - Upper abdominal pain, unspecified Instructions: ED Abdominal Pain Unkn Cause Follow-Up: GABO WYLIE DO [Primary Care Provider] - Comments: You were found to have an left adrenal mass that is probably a benign adenoma but should be discussed with your primary care provider in regards to monitoring of the mass. If you experience this recurrent pain again I would actually feel along her abdominal wall at the scars to make sure that you do not have a hernia that its incarcerated and tender. Return to the emergency department if you have increasing pain, you are vomiting and cannot keep anything down, develop a fever or other problems arise otherwise follow-up with your primary care provider as needed. Discharge Date/Time: 12/02/18 03:56
[2018-12-02] MEDS ORDERED: LORazepam 2 MG/ML VIAL IVP STA (00:12)
[2018-12-02] MEDS ORDERED: METOCLOPRAMIDE 10 MG/2 ML VIAL IVP STA (00:12)
[2018-12-02] MEDS ORDERED: SODIUM CHLORIDE 0.9% 1,000 ML IV ONE (00:12)
[2018-12-02 00:19] LABS: BASOPHILS # (AUTO) 0.1 10^3/uL (0.0-0.1); BASOPHILS % (AUTO) 0.8 %; EOSINOPHILS # (AUTO) 0.3 10^3/uL (0.0-0.7); EOSINOPHILS % (AUTO) 2.2 %; HGB - HEMOGLOBIN 12.2 g/dL (12.0-16.0); LYMPHOCYTES # (AUTO) 4.8 10^3/uL (1.5-3.5); LYMPHOCYTES % (AUTO) 40.8 %; MEAN CORPUSCULAR HEMOGLOBIN 23.7 pg (27.0-31.0); MEAN CORPUSCULAR HGB CONC 30.6 g/dL (32.0-36.0); MEAN CORPUSCULAR VOLUME 77.6 fL (81.0-99.0); MEAN PLATELET VOLUME 11.5 fL (7.9-10.8); MONOCYTES # (AUTO) 1.1 10^3/uL (0.0-1.0); MONOCYTES % (AUTO) 9.5 %; NEUTROPHILS # (AUTO) 5.5 10^3/uL (1.5-6.6); NEUTROPHILS % (AUTO) 46.4 %; PLT - PLATELET COUNT 293 10^3/uL (130-450); RED BLOOD COUNT 5.14 10^6/uL (4.20-5.40); RED CELL DISTRIBUTION WIDTH 14.5 % (12.0-15.0); WHITE BLOOD COUNT 11.8 x10^3/uL (4.8-10.8)
[2018-12-02 00:32] LABS: ALBUMIN 3.9 g/dL (3.2-5.5); ALBUMIN/GLOBULIN RATIO 1.3 (1.0-2.2); BILIRUBIN,TOTAL 0.4 mg/dL (0.2-1.0); CALCIUM 8.9 mg/dL (8.5-10.3); CREATININE 0.8 mg/dL (0.4-1.0)
--- NOTE | 2018-12-02 01:22 | XRAY Report ---
Reason: abd pain Procedure Date: 12/02/2018 Accession Number: [id number] / [id number] Procedure: XR - Abdomen Acute CPT Code: FULL RESULT: EXAM: ABDOMINAL SERIES AND PA CHEST EXAM DATE: 12/02/2018 01:10 AM. CLINICAL HISTORY: Abd pain. COMPARISON: CHEST 1 VIEW 09/26/2018 3:51 PM. TECHNIQUE: 2 views abdomen and 1 view chest. FINDINGS: CHEST: Lungs/Pleura: No focal opacities. No effusion or pneumothorax. Mediastinum: Within exam limitations, cardiomediastinal contour is normal. ABDOMEN: Bowel Gas Pattern: Within normal limits. No dilated loops or abnormal fluid levels. Free Air: None. Other: Postoperative changes. IMPRESSION: Normal abdominal series (including 1-view chest). RADIA
[2018-12-02 01:39] LABS: BILIRUBIN,URINE NEGATIVE (NEGATIVE); GLUCOSE, URINE (UA) NEGATIVE (NEGATIVE); KETONES,URINE (UA) NEGATIVE (NEGATIVE); LEUKOCYTE ESTERASE, URINE NEGATIVE (NEGATIVE); NITRITE,URINE NEGATIVE (NEGATIVE); OCCULT BLOOD,URINE NEGATIVE (NEGATIVE); PH,URINE 5.5 PH (5.0-7.5); PROTEIN,URINE NEGATIVE (NEGATIVE); UROBILINOGEN,URINE 0.2 (NORMAL) E.U./dL (NORMAL)
[2018-12-02 01:40] LABS: CLARITY,URINE CLEAR (CLEAR)
[2018-12-02] MEDS ORDERED: IOVERSOL 320 100 ML VIAL IVP ONE ×2 (01:48→02:06)
--- NOTE | 2018-12-02 02:34 | CT Report ---
Reason: Abd pain Procedure Date: 12/02/2018 Accession Number: [id number] / [id number] Procedure: CT - Abdomen/Pelvis W CPT Code: FULL RESULT: EXAM: CT ABDOMEN AND PELVIS EXAM DATE: 12/02/2018 02:04 AM. CLINICAL HISTORY: Abdominal pain and nausea. History of cholecystectomy, gastric bypass, and hysterectomy. COMPARISONS: None. TECHNIQUE: Routine helical CT imaging was performed through the abdomen and pelvis. IV contrast: OPTI 320 100ML. Enteric contrast: No. Reconstructions: Coronal and sagittal. In accordance with CT protocol optimization, one or more of the following dose reduction techniques were utilized for this exam: automated exposure control, adjustment of mA and/or KV based on patient size, or use of iterative reconstructive technique. FINDINGS: Lung Bases: Mild bibasilar atelectasis. Liver: No focal abnormality seen. Gallbladder/Bile Ducts: Status post cholecystectomy. Mild biliary dilatation. Spleen: Normal. Pancreas: Mild to moderate atrophy. Adrenal Glands: Right adrenal is unremarkable. Left adrenal mass measuring 4.3 x 3.0 cm with attenuation of 28 HU. Kidneys: Normal. No masses or hydronephrosis. Peritoneal Cavity/Bowel: Gastric bypass. No bowel obstruction seen. Moderate stool in the colon. No free air or free fluid. No diverticulitis. No lymphadenopathy. Appendix appears normal. Pelvic Organs: Uterus is not seen. The visualized pelvic organs are unremarkable. Vasculature: Mild atherosclerosis. Bones: No significant abnormality. Other: None. IMPRESSION: 1. Status post cholecystectomy with mild nonspecific biliary dilatation. Recommend correlation with bilirubin level. 2. Gastric bypass. No bowel obstruction seen. 3. Moderate stool in the colon. 4. Left adrenal mass measuring 4.3 x 3.0 cm, possibly adenoma but not definitively characterized on this postcontrast examination. Recommend nonemergent adrenal protocol CT or MRI. 5. No appendicitis or diverticulitis. RADIA
[2018-12-02 03:12] VITALS: BP 142/73
== END 2018-12-02 03:56 | disposition home or self-care (01) ==
LOC: ED 23:44
DX: R10.13 Epigastric pain (principal); M54.5 Low back pain; R06.00 Dyspnea, unspecified; R94.31 Abnormal electrocardiogram [ECG] [EKG]; I10 Essential (primary) hypertension; E11.9 Type 2 diabetes mellitus without complications; Z79.4 Long term (current) use of insulin; R19.09 Other intra-abdominal and pelvic swelling, mass and lump; Z98.84 Bariatric surgery status; Z90.49 Acquired absence of other specified parts of digestive tract; Z90.710 Acquired absence of both cervix and uterus
CPT/HCPCS: 36415; 74022; 74177; 80053; 81003; 83690; 84484; 85025; 93005; 96361; 96374; 96375; 99284; J2060; J2765; Q9967; 81001; 87086

== ENCOUNTER 2019-03-13 14:56 | Emergency (ER) | payer OTHER ==
[2019-03-13 15:12] VITALS: BP 145/80
[2019-03-13] MEDS ORDERED: oxyCODONE 5 MG TABLET PO STA (16:34)
[2019-03-13] MEDS ORDERED: DOXEPIN 10 MG CAPSULE PO STA (16:34)
--- NOTE | 2019-03-13 16:37 | ED Physician Documentation ---
PD HPI ABD PAIN - Stated complaint Stated Complaint: SOA,DIZZY - Chief complaint Chief Complaint: Abd Pain - History obtained from History obtained from: Patient (She was diagnosed with a 4.3 cm left adrenal mass about 4 months ago. She has had trouble getting in with urologist, trouble getting a referral, and trouble with pain management here. 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 : None HEENT: Chronic sinusitis Psych: None Musculoskeletal: Osteoarthritis Derm: None - Past Surgical History Past Surgical History: Yes General: Cholecystectomy, Bowel surgery, Gastric surgery, Colonoscopy /LOAN REVIEW OFFICER: Endometrial ablation, Dilation and currettage, Hysterectomy, Oophrectomy, LEEP (Cervical surgery) HEENT: Tonsil/Adenoidectomy - Present Medications Home Medications: Ambulatory Orders Medication Instructions Recorded Confirmed Sitagliptin Phos/Metformin HCl 1 tab PO DAILY 09/25/16 06/17/18 [Janumet 50-1,000 mg Tablet] Albuterol Sulf [Ventolin Hfa 1 - 2 puffs INH Q4HR PRN #1 inhaler 11/11/17 06/17/18 Inhaler] Estradiol/Norethindrone Acet 1 tab PO DAILY 06/17/18 06/17/18 [Lopreeza 1 mg-0.5 mg Tablet] Insulin Glargine [Lantus Solostar] 20 unit SQ DAILY 06/17/18 06/17/18 predniSONE [Prednisone] 40 mg PO DAILY PRN 06/17/18 06/17/18 Doxepin [SINEquan] 10 mg PO TID PRN #30 capsule 03/13/19 Oxycodone HCl/Acetaminophen 1 - 2 each PO Q6H PRN #14 tablet 03/13/19 [Percocet 5-325 mg Tablet] - Allergies Allergies/Adverse Reactions: Allergies Allergy/AdvReac Type Severity Reaction Status Date / Time No Known Drug Allergies Allergy Verified 10/11/18 16:15 - Social History Does the pt smoke?: No Smoking Status: Never smoker Does the pt drink ETOH?: Yes Does the pt have substance abuse?: No - Immunizations Immunizations are current?: Yes - POLST Patient has POLST: No PD ED PE NORMAL - Vitals Vital signs reviewed: Yes - General General: Alert and oriented X 3, Other (appears uncomfortable) - Abdomen Abdomen: Non tender - Back Back: No CVA TTP - Derm Derm: Normal color, Warm and dry - Extremities Extremities: No edema - Neuro Neuro: Alert and oriented X 3, Normal speech Results - Vitals Vitals: Vital Signs - 24 hr 03/13/19 15:08 Temperature 36.8 C Heart Rate 79 Respiratory 18 Rate Blood Pressure 145/80 H O2 Saturation 97 Oxygen O2 Source Room air PD MEDICAL DECISION MAKING - ED course ED course: 53-year-old woman with some trouble getting into an appropriate surgeon and getting adequate pain management with a known adrenal mass. I discussed with her that if she truly needs a referral for insurance purposes that I cannot give her 1, this has to come from her primary care physician but I did email Dr. Gold about this. Departure - Departure Disposition: Home, Self Care Clinical Impression: Adrenal mass greater than 4 cm in diameter with no history of malignant neoplasm Condition: Good Record reviewed to determine appropriate education?: Yes Prescriptions: Doxepin [SINEquan] 10 mg PO TID PRN #30 capsule PRN Reason: Itching Oxycodone HCl/Acetaminophen [Percocet 5-325 mg Tablet] 1 - 2 each PO Q6H PRN #14 tablet PRN Reason: pain Comments: I have emailed your primary care physician to try to expedite a referral. You can also call the local urology group which is based in [place]. However it sounds like you need a formal referral to go see them. The phone number there is [phone]. Return for new or worsening symptoms. Discharge Date/Time: 03/13/19 16:46
== END 2019-03-13 16:46 | disposition home or self-care (01) ==
LOC: ED 14:56
DX: R10.9 Unspecified abdominal pain (principal); E27.8 Other specified disorders of adrenal gland; I10 Essential (primary) hypertension; E11.9 Type 2 diabetes mellitus without complications; Z79.4 Long term (current) use of insulin
CPT/HCPCS: 99282; 99283; A9270

== ENCOUNTER 2019-06-09 09:26 | Outpatient (CLI) | payer OTHER ==
[2019-06-09 12:14] LABS: T4 (THYROXINE) 6.62 ug/dL (6.09-12.23)
[2019-06-09 12:18] LABS: FREE T3 3.57 pg/mL (2.5-3.9); THYROID STIMULATING HORMONE 2.69 uIU/mL (0.34-5.60)
[2019-06-09 12:19] LABS: FREE T4 (FREE THYROXINE) 0.67 ng/dL (0.58-1.64)
== END 2019-06-09 23:59 | disposition home or self-care (01) ==
LOC: LAB.WCP 09:26
PROVIDERS: ATTEND Family Medicine
DX: R22.1 Localized swelling, mass and lump, neck (principal)
CPT/HCPCS: 36415; 84436; 84439; 84443; 84481; 86800

== ENCOUNTER 2019-06-12 18:33 | Emergency (ER) | payer OTHER ==
[2019-06-12 18:41] VITALS: BP 146/97
[2019-06-12] MEDS ORDERED: CLINDAMYCIN 150 MG CAPSULE PO STA (18:48)
--- NOTE | 2019-06-12 18:51 | ED Physician Documentation ---
PD HPI HEENT - Stated complaint Stated Complaint: MOUTH PX - Chief complaint Chief Complaint: Heent - History obtained from History obtained from: Patient - History of Present Illness Timing - onset: Other (Last 2 days she has had a sensation of swelling of the anterior neck under the jaw. She saw her physician for this and labs were done mostly to check her thyroid which were reviewed and normal. More pain and swelling over the last couple of days. No fevers. 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 : None HEENT: Chronic sinusitis Psych: None Musculoskeletal: Osteoarthritis Derm: None - Past Surgical History Past Surgical History: Yes General: Cholecystectomy, Bowel surgery, Gastric surgery, Colonoscopy /SUPERVISOR MECHANIC BOILERMAKING: Endometrial ablation, Dilation and currettage, Hysterectomy, Oophrectomy, LEEP (Cervical surgery) HEENT: Tonsil/Adenoidectomy - Present Medications Home Medications: Ambulatory Orders Medication Instructions Recorded Confirmed Sitagliptin Phos/Metformin HCl 1 tab PO DAILY 09/25/16 06/17/18 [Janumet 50-1,000 mg Tablet] Albuterol Sulf [Ventolin Hfa 1 - 2 puffs INH Q4HR PRN #1 inhaler 11/11/17 06/17/18 Inhaler] Estradiol/Norethindrone Acet 1 tab PO DAILY 06/17/18 06/17/18 [Lopreeza 1 mg-0.5 mg Tablet] Insulin Glargine [Lantus Solostar] 20 unit SQ DAILY 06/17/18 06/17/18 predniSONE [Prednisone] 40 mg PO DAILY PRN 06/17/18 06/17/18 Doxepin [SINEquan] 10 mg PO TID PRN #30 capsule 03/13/19 Oxycodone HCl/Acetaminophen 1 - 2 each PO Q6H PRN #14 tablet 03/13/19 [Percocet 5-325 mg Tablet] Clindamycin HCl [Clindamycin 300MG 300 mg PO Q6H #40 capsule 06/12/19 CAP] - Allergies Allergies/Adverse Reactions: Allergies Allergy/AdvReac Type Severity Reaction Status Date / Time No Known Drug Allergies Allergy Verified 06/12/19 18:36 - Social History Does the pt smoke?: No Smoking Status: Never smoker Does the pt drink ETOH?: Yes Does the pt have substance abuse?: No - Immunizations Immunizations are current?: Yes - POLST Patient has POLST: No PD ED PE NORMAL - Vitals Vital signs reviewed: Yes - General General: Alert and oriented X 3, No acute distress - HEENT HEENT: Other (There is not a whole lot of visual swelling of the neck. Intraorally she is tender to the last mandibular molar on the left, and there is some sublingual tenderness although no sublingual edema or lingual elevation) - Neck Neck: Supple, no meningeal sign, No bony TTP - Neuro Neuro: Alert and oriented X 3, Normal speech - Psych Psych: Normal mood, Normal affect Results - Vitals Vitals: Vital Signs - 24 hr 06/12/19 18:36 Temperature 36.5 C Heart Rate 93 Respiratory 16 Rate Blood Pressure 146/97 H O2 Saturation 98 Oxygen O2 Source Room air PD MEDICAL DECISION MAKING - ED course ED course: This is a 53-year-old woman with a dental infection causing some swelling under the jaw. She was administered clindamycin and given close return precautions and advised to follow-up with her dentist. Departure - Departure Disposition: 01 Home, Self Care Clinical Impression: Dental abscess Condition: Good Record reviewed to determine appropriate education?: Yes Instructions: ED Dental Abscess Facial Cellulitis Prescriptions: Clindamycin HCl [Clindamycin 300MG CAP] 300 mg PO Q6H #40 capsule Comments: Return if swelling increases or any of your symptoms worsen or if you develop a fever. You need to follow-up with a dentist as soon as possible. Discharge Date/Time: 06/12/19 18:59
== END 2019-06-12 18:59 | disposition home or self-care (01) ==
LOC: ED 18:33
DX: K04.7 Periapical abscess without sinus (principal); I10 Essential (primary) hypertension; E11.9 Type 2 diabetes mellitus without complications; Z79.4 Long term (current) use of insulin
CPT/HCPCS: 99282; 99283; A9270

== ENCOUNTER 2019-06-22 13:55 | Outpatient (CLI) | payer OTHER ==
--- NOTE | 2019-06-23 03:43 | Ultrasound Report ---
Reason: NECK MASS Procedure Date: 06/22/2019 Accession Number: [id number] / [id number] Procedure: US - Head or Neck Soft Tissue CPT Code: Final Report FULL RESULT: EXAM: NECK ULTRASOUND EXAM DATE: 06/22/2019 02:20 PM. CLINICAL HISTORY: NECK MASS. COMPARISON: None. TECHNIQUE: Real-time sonographic imaging was performed by the floorperson utilizing color-flow. Multiple graphic art sales representative static images were saved for review. FINDINGS: At the area of palpable abnormality there is a left submandibular lymph node measuring 1.1 x 1.0 x 0.5 cm. The left submandibular gland is also in the area of palpable lump. IMPRESSION: 1. Area of palpable abnormality corresponds with a left submandibular lymph node measuring 1.1 x 1.0 x 0.5 cm, and the left submandibular gland. RADIA
== END 2019-06-22 13:56 | disposition home or self-care (01) ==
LOC: DI 13:55
PROVIDERS: ATTEND Family Medicine
DX: R22.1 Localized swelling, mass and lump, neck (principal)
CPT/HCPCS: 76536

== ENCOUNTER 2019-06-28 20:10 | Emergency (ER) | payer OTHER ==
[2019-06-28 20:19] VITALS: BP 154/94
[2019-06-28] MEDS ORDERED: PENICILLIN VK 250 MG TABLET PO STA (20:32)
--- NOTE | 2019-06-28 20:36 | ED Physician Documentation ---
History of Present Illness - Stated complaint Stated Complaint: FACIAL SWELLING - Chief complaint Chief Complaint: Heent - History obtained from History obtained from: Patient (Patient is a 53-year-old female presents with a chief complaint of dental pain she reports that she has been on clindamycin recently for chronic dental implants that she had placed in [place] she reports has been unable to get into a dentist or an oral maxillofacial surgeon she denies any acute difficulty speaking, chewing or swallowing and denies any fevers or facial or neck swelling.) Review of Systems Constitutional: reports: Reviewed and negative Eyes: reports: Reviewed and negative Ears: reports: Reviewed and negative Nose: reports: Reviewed and negative Throat: reports: Dental pain / toothache Cardiac: reports: Reviewed and negative Respiratory: reports: Reviewed and negative GI: reports: Reviewed and negative : reports: Reviewed and negative Skin: reports: Reviewed and negative Musculoskeletal: reports: Reviewed and negative Neurologic: reports: Reviewed and negative Psychiatric: reports: Reviewed and negative Endocrine: reports: Reviewed and negative Immunocompromised: reports: Reviewed and negative PD PAST MEDICAL HISTORY - Past Medical History Cardiovascular: Hypertension Respiratory: None Neuro: None Endocrine/Autoimmune: Type 2 diabetes GI: GERD 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: Endometriosis : None HEENT: Chronic sinusitis Psych: None Musculoskeletal: Osteoarthritis Derm: None - Past Surgical History Past Surgical History: Yes General: Cholecystectomy, Bowel surgery, Gastric surgery, Colonoscopy /PEG DRIVER: Endometrial ablation, Dilation and currettage, Hysterectomy, Oophrectomy, LEEP (Cervical surgery) HEENT: Tonsil/Adenoidectomy - Present Medications Home Medications: Ambulatory Orders Medication Instructions Recorded Confirmed Sitagliptin Phos/Metformin HCl 1 tab PO DAILY 09/25/16 06/17/18 [Janumet 50-1,000 mg Tablet] Albuterol Sulf [Ventolin Hfa 1 - 2 puffs INH Q4HR PRN #1 inhaler 11/11/17 06/17/18 Inhaler] Estradiol/Norethindrone Acet 1 tab PO DAILY 06/17/18 06/17/18 [Lopreeza 1 mg-0.5 mg Tablet] Insulin Glargine [Lantus Solostar] 20 unit SQ DAILY 06/17/18 06/17/18 predniSONE [Prednisone] 40 mg PO DAILY PRN 06/17/18 06/17/18 Doxepin [SINEquan] 10 mg PO TID PRN #30 capsule 03/13/19 Oxycodone HCl/Acetaminophen 1 - 2 each PO Q6H PRN #14 tablet 03/13/19 [Percocet 5-325 mg Tablet] Clindamycin HCl [Clindamycin 300MG 300 mg PO Q6H #40 capsule 06/12/19 CAP] Penicillin V Potassium 500 mg PO QID 10 Days #40 tablet 06/28/19 - Allergies Allergies/Adverse Reactions: Allergies Allergy/AdvReac Type Severity Reaction Status Date / Time acetaminophen [From Percocet] Allergy Unknown Verified 06/28/19 20:12 oxycodone [From Percocet] Allergy Unknown Verified 06/28/19 20:12 - Social History Does the pt smoke?: No Smoking Status: Never smoker Does the pt drink ETOH?: Yes Does the pt have substance abuse?: No - Immunizations Immunizations are current?: Yes - POLST Patient has POLST: No PD ED PE NORMAL - Vitals Vital signs reviewed: Yes - General General: Alert and oriented X 3, No acute distress, Well developed/nourished - HEENT HEENT: Atraumatic, PERRL, Ears normal, Moist mucous membranes, Pharynx benign, Dentition benign, Other (Oropharynx is clear without exudates, uvula is midline, no signs of ANUG or Shelby's angina. There is no obvious dental abscess or periapical abscess. There is mild tenderness diffusely on the mandibular posterior portions there is no submandibular lymphadenopathy no anterior posterior cervical lymphadenopathy no occipital lymphadenopathy, trachea is midline, no carotid bruits and no JVD.) - Neck Neck: Supple, no meningeal sign - Cardiac Cardiac: RRR, No murmur - Respiratory Respiratory: No respiratory distress, Clear bilaterally - Abdomen Abdomen: Normal bowel sounds, Soft, Non tender, Non distended - Derm Derm: Warm and dry - Extremities Extremities: No deformity - Neuro Neuro: Alert and oriented X 3, sales operations coordinator 2-12 intact, No motor deficit, No sensory deficit, Normal speech - Psych Psych: Normal mood, Normal affect Results - Vitals Vitals: Vital Signs - 24 hr 06/28/19 20:12 Temperature 36.5 C Heart Rate 83 Respiratory 16 Rate Blood Pressure 154/94 H O2 Saturation 99 Oxygen O2 Source Room air PD MEDICAL DECISION MAKING - ED course Complexity details: considered differential (No obvious dental abscess, no signs of ANUG or Shelby's the patient has been treated recently on clindamycin this patient needs to be evaluated by a dentist or oral maxillofacial surgeon she is not been treated with penicillin will initiate treatment with penicillin and encourage close follow-up with a dentist as well as possibly an oral maxillofacial surgeon.) Departure - Departure Disposition: 01 Home, Self Care Clinical Impression: Dental implant pain Qualifiers: Encounter type: subsequent encounter Qualified Code(s): T85.848D - Pain due to other internal prosthetic devices, implants and grafts, subsequent encounter Condition: Stable Instructions: ED Tooth Pain Follow-Up: ADELAIDE ROPER MD [Primary Care Provider] - Prescriptions: Penicillin V Potassium 500 mg PO QID 10 Days #40 tablet Comments: Follow-up with your primary care provider tomorrow, call an oral maxillofacial surgeon tomorrow to schedule follow-up take penicillin as directed.
== END 2019-06-28 21:13 | disposition home or self-care (01) ==
LOC: ED 20:10
DX: M27.69 Other endosseous dental implant failure (principal); Z98.818 Other dental procedure status; I10 Essential (primary) hypertension; E11.9 Type 2 diabetes mellitus without complications; Z79.4 Long term (current) use of insulin
CPT/HCPCS: 99282; 99283; A9270

== ENCOUNTER 2019-07-21 09:47 | Outpatient (CLI) | payer OTHER ==
--- NOTE | 2019-07-21 14:42 | Ultrasound Report ---
Reason: MASS OF SOFT TISSUE OF LEFT ARM Procedure Date: 07/21/2019 Accession Number: [id number] / [id number] Procedure: US - Ext Limited Non Vascular CPT Code: Final Report FULL RESULT: EXAM: LIMITED LEFT UPPER ARM ULTRASOUND EXAM DATE: 07/21/2019 10:16 AM. CLINICAL HISTORY: Left upper arm mass. Intermittent swelling for 2 years with pain. Clinical concern for lipoma. COMPARISON: 10/11/2018. TECHNIQUE: Real-time scanning was performed with static images obtained. FINDINGS: The area of concern is in the medial distal upper arm distal to the biceps muscle. In this region, there is an oval-shaped structure within the subcutaneous fat that is isoechoic to the surrounding fat. It measures 1.9 x 0.8 x 2.3 cm and does not contain blood flow. IMPRESSION: 2 cm benign lipoma at the site of palpable concern. [facility]
== END 2019-07-21 09:48 | disposition home or self-care (01) ==
LOC: DI 09:47
PROVIDERS: ATTEND Family Medicine
DX: D17.22 Benign lipomatous neoplasm of skin and subcutaneous tissue of left arm (principal)
CPT/HCPCS: 76882